=== PATIENT | male | born 1935 | race Caucasian/White ===

== ENCOUNTER 2017-03-23 18:12 | Emergency (ER) | payer MEDICARE ==
[2017-03-23] MEDS ORDERED: Acetaminophen 500 MG TAB ONE (18:28)
[2017-03-23] MEDS ORDERED: diphenhydrAMINE 50 MG/ML VIAL ONE (18:28)
[2017-03-23] MEDS ORDERED: Metoclopramide HCl 10 MG/2 ML VIAL ONE (18:28)
--- NOTE | 2017-03-23 18:57 | CT ---
CT OF BRAIN PERFORMED WITHOUT CONTRAST ENHANCEMENT: 03/23/17 HISTORY: Patient is status post fall with headache. COMPARISON: 04/06/16 study. Ventriculoperitoneal shunt tube is in place. The ventricular and cisternal system shows generalized atrophy and appears stable as compared to the prior exam. There is chronic white matter changes. The re is no signs of intracerebral hemorrhage or extra-axial fluid collections. The mastoid air cells a nd visualized sinuses are clear. IMPRESSION: No acute intracranial abnormalities. POS: [facility]
== END 2017-03-23 19:31 | disposition home or self-care (01) ==
LOC: ERS 18:12
DX: S09.90XA Unspecified injury of head, initial encounter (principal); I25.2 Old myocardial infarction; E78.5 Hyperlipidemia, unspecified; I10 Essential (primary) hypertension; Z79.82 Long term (current) use of aspirin; Z79.899 Other long term (current) drug therapy; W01.198A Fall on same level from slipping, tripping and stumbling with subsequent striking against other object, initial encounter; Y92.524 Gas station as the place of occurrence of the external cause
CPT/HCPCS: 70450; 96361; 96374; 96375; J1200; J2765

== ENCOUNTER 2017-05-07 13:08 | Outpatient (CLI) | payer MEDICARE ==
--- NOTE | 2017-05-07 14:34 | RAD ---
PA AND LATERAL CHEST TWO VIEWS: History: 82-year-old male with dyspnea. Comparison: 04-11-16 FINDINGS: Post underlying sternotomy. Prominent atherosclerotic ectatic changes of the aorta. Right CONFERENCE TRANSLATOR shunt tu be. Status post vertebroplasty changes in the region of the upper lumbar lower thoracic area. No conf luent pneumonia, overt edema or pleural effusion. IMPRESSION: Stable chronic lung changes. Marked atherosclerosis of the aorta with ectasia. POS: [facility]
== END 2017-05-07 13:09 | disposition home or self-care (01) ==
LOC: RAD 13:08
PROVIDERS: ATTEND Internal Medicine Pulmonary Disease
DX: R06.00 Dyspnea, unspecified (principal); I70.0 Atherosclerosis of aorta
CPT/HCPCS: 71020

== ENCOUNTER 2017-05-15 12:30 | Observation (INO) | payer MEDICARE ==
[2017-05-15 12:55] LABS: #Eosinphils 0.1 thou/uL (0.0-0.7); #Lymphocytes 1.6 thou/uL (1.20-3.40); #Monocytes 0.4 thou/uL (0.11-0.59); #Neutrophils 5.2 thou/uL (1.40-6.50); %Basophils 0.1 % (0.0-1.0); %Eosinophils 1.7 % (0.0-10.0); %Lymphocytes 21.9 % (21.0-51.0); %Monocytes 5.5 % (0.0-10.0); Hematocrit 45.8 % (42.0-52.0); Mean Platelet Volume 8.5 fL (7.4-10.4); Red Blood Cell (RBC) Count 4.68 mill/uL (4.70-6.10); White Blood Cell (WBC) Count 7.3 thou/uL (4.8-10.8)
[2017-05-15 13:22] LABS: ALT (SGPT) 20 U/L (8-55); AST (SGOT) 19 U/L (5-34); Alkaline Phosphatase 96 U/L (40-150); Anion Gap 13 mmol/L (10-20); BUN (Urea Nitrogen) 13 mg/dL (8.4-25.7); Bilirubin, Total 1.2 mg/dL (0.2-1.2); CK (CPK) 79 U/L (30-200); Calc. Creatinine Clearance 0 mL/min (70-130); Calcium 9.8 mg/dL (7.8-10.44); Carbon Dioxide 24 mmol/L (23-31); Chloride 105 mmol/L (98-107); Estimated GFR-MDRD 75; Globulin 2.9 g/dL (2.4-3.5); Lipase 15 U/L (8-78); Protein, Total 7.1 g/dL (5.8-8.1)
[2017-05-15 13:24] LABS: Troponin I 0.017 ng/mL (< 0.028)
--- NOTE | 2017-05-15 13:34 | RAD ---
SINGLE VIEW OF THE CHEST: Date: 05-15-17 Comparison: 04-16-16 History: Chest pain. FINDINGS: Single view of the chest shows a normal sized cardiomediastinal silhouette. Patient is status post st ernotomy. A catheter projecting over the right chest wall may represent a HOG KILLER shunt. There is no evide nce of consolidation, mass or pleural effusion. IMPRESSION: No evidence of acute cardiopulmonary disease. POS: [facility]
[2017-05-15 13:52] LABS: PTT 28.5 SEC (22.9-36.1); Prothrombin Time 13.7 SEC (12.0-14.7)
[2017-05-15] MEDS ORDERED: ISOVUE-370 76%-LOCM 1 ML ONE (13:54)
[2017-05-15 13:56] LABS: Lactic Acid - Sepsis 2.6 mmol/L (0.5-2.2)
[2017-05-15] MEDS ORDERED: Azithromycin 500 MG VIAL ONE (14:22)
--- NOTE | 2017-05-15 14:58 | CT ---
CTA OF THE CHEST WITH CONTRAST: Comparison: 04-10-15 History: Chest pain with shortness of breath. Technique: Multiple contiguous axial images were obtained in a CT of the chest with contrast performe d according to department protocol. 3D oblique MIP reformats and direct coronal reformats were perfor med. FINDINGS: The pulmonary arteries are well opacified without filling defects to suggest pulmonary emboli. The he art is mildly enlarged. Calcifications are seen in the coronary arteries and aorta. No hilar or media stinal lymphadenopathy are seen. No pneumothorax or pleural effusion are seen. No focal infiltrates are seen in the lungs. No suspicio us pulmonary nodules are seen. Degenerative changes are seen in the spine. A gallstone is seen in the gallbladder. The other visuali zed subdiaphragmatic structures are unremarkable. There is a catheter projecting over the anterior as pect of the chest which eventually courses into the left upper quadrant of the abdomen and likely rep resents a CASSANDRA CONSULTANT shunt. There is subcutaneous nodules in the chest wall which may represent sebaceous cys ts. The chest wall soft tissues are otherwise unremarkable. IMPRESSION: 1. No evidence of pulmonary thromboembolism. 2. Cholelithiasis. POS: [facility]
--- NOTE | 2017-05-15 15:57 | HP ---
DATE OF ADMISSION: 05/15/2017 PRIMARY CARE PHYSICIAN: Dr. Black Lucas. PRIMARY MOHEL: Dr. True Kothari. TIME OF SERVICE: 1400. CHIEF COMPLAINT: Chest pain. HISTORY OF PRESENT ILLNESS: Mr. Xie is a pleasant 82-year-old gentleman with history of hypertension , hyperlipidemia, coronary artery disease, and bifascicular block, who presents to the emergency depa rtment for complaints of chest discomfort. The patient was in normal state of health this morning, and at 0208 was abruptly awakened by a band o r rope like tightness around his chest. He rated 7/10 discomfort. He denies any shortness of breath , sweats or diaphoresis with this and said it went away with 3 tramadol. There does not seem to be r elated to position or activity. He subsequently was not feeling better, so he came to the emergency department for evaluation. There he was found to be hypoxic when EMS was activated. On arrival, he is 94% on oxygen. He has be en in the low 90s on 2-3 liters here. He has been tachycardic with heart rate in the low 100s, blood pressure on arrival was in the 80 systolic and after a little bit of fluid, it comes up into the hig h 90s, low 100s. He denies any chest discomfort at present. No nausea or vomiting. No diarrhea or constipation. He has had no sick contacts or any cough or sputum production. Denies any sharp pains in the chest. De nies any PND or orthopnea. Historically, the patient denies having any heart failure; however, review of his echo in 08/2014, sh ows an EF 50% to 55% with mild systolic and evidence of diastolic dysfunction, moderate tricuspid and mild mitral regurgitation and some inferior wall hypokinesis. Other workup in the ER including CT angio was negative pulmonary embolus or fluid or pneumonia. He had negative biomarkers x1 set. Labs were otherwise unremarkable. We were called for further wor kup. I spoke with Dr. Kothari. He had a negative stress test 1-2 years ago. PAST MEDICAL HISTORY: 1. Hypertension. 2. Hyperlipidemia. 3. Coronary artery disease, status post NV in the past. 4. History of hydrocephalus, status post POLE INCISOR OPERATOR shunt placement. 5. Hypertension, essential. 6. History of prostate cancer. 7. History of chronic low back pain. PAST SURGICAL HISTORY: 1. POLE INCISOR OPERATOR shunt placement for hydrocephalus in 2007, still functioning. 2. There was appendectomy remotely. 3. Coronary artery bypass x3. 4. There was hernia repair. 5. Bilateral total knee replacements. 6. Radical prostatectomy. 7. Transurethral resection of his prostate. HOME MEDICATIONS: 1. Aspirin 81 mg daily. 2. Colace 100 mg p.o. b.i.d. 3. Atorvastatin 80 mg p.o. at bedtime. 4. Isosorbide mononitrate 30 mg p.o. b.i.d. 5. Metoprolol tartrate 12.5 mg p.o. at bedtime. 6. Tramadol as needed. 7. Ranexa 1000 mg p.o. b.i.d. 8. Protonix 40 mg daily. 9. Ditropan-XL 10 mg daily. 10. Nitroglycerin 0.4 mg sublingual every 5 minutes p.r.n. 11. Hyophen 1 tablet p.o. q.i.d. per records. ALLERGIES: NKDA. FAMILY HISTORY: Negative for clotting or bleeding disorders. No immune dysfunction. SOCIAL HISTORY: He is . He has had no recent travel. He is negative for alcohol, tobacco or drug use. REVIEW OF SYSTEMS: A 10-point review of systems was performed, negative for all other systems except stated as per HPI. PHYSICAL EXAMINATION: VITAL SIGNS: Temperature 97.8, pulse on arrival 108. Blood pressure was 96/48 down to the 80s/40s. He had gotten fluids by the time I saw him back in the low 100s/50s. After coming back from CT kelly ogram was 113/60. Respiratory rate on arrival was 19 and is less at 94% on room air, but currently s atting 92% to 93% on 3 liters. GENERAL: He is awake. He is alert. He is oriented x3. He is a well-developed, well-nourished elde rly white male, who appears to be in no acute distress. He cannot hear very well at all. HEENT: Normocephalic, atraumatic. Pupils equal, round, reactive to light bilaterally, mucous membra rosa are moist. He has no visible lesions. No thrush. NECK: Supple. There is no lymphadenopathy, no JVD and no thyromegaly. He has normal carotid upstro kes. I do not appreciate bruits. LUNGS: Clear to auscultation anteriorly. Posteriorly, he has some faint bibasilar crackles that do clear with deep inspiration. There is no E to A changes. He has got symmetrical chest excursion wit h good air movement. There is no prolonged expiratory phase. CARDIOVASCULAR: He is tachycardic, but regular. He has a normal S1 and a decreased S2. I do not he ar an S3. I do not hear an S4. He does have a 3/6 holosystolic murmur best heard at the left lower sternal border. He has a faint 2/6 systolic ejection murmur best heard at the right upper sternal shannan rder. These do not radiate anywhere. ABDOMEN: Soft, slightly obese, nontender, nondistended. He has good bowel sounds. There is no rebo und, rigidity or guarding. EXTREMITIES: Show no cyanosis or clubbing. He has got trace edema of the right lower extremity belo w the knee that does not fit. He has no edema to his left leg. His knees have well-healed incisions from previous knee replacements. SKIN: Otherwise warm, moist, and well perfused without any other rashes or lesions. MUSCULOSKELETAL: Normal to inspection. Large joints appear uninflamed without palpable joint effusi ons. NEUROLOGIC: Cranial nerves II-XII to be grossly intact. He has normal speech pattern. He has 5/5 s trength. There are no focal neurologic deficits. LABORATORY DATA: CMP is normal. Sodium 138, potassium is 3.9, creatinine 0.96, calculating MDRD GFR of 75. Glucose 136. He has normal liver functions. CBC showed a white count of 7.3 with a normal differential, hemoglobin is 14.6, hematocrit of 45.8, and platelet count is 181,000. Troponin I was for now 0.017 and MB is normal at 1.7. Lactic acid was 2.6. When I initially saw him with labs, the re was no BNP, but it was added by the ER at my request. BNP came back at 169.2. INR was 1.0. EKG showed a right bundle branch block, left anterior hemiblock. He has got sinus tachycardia. There ar e nonspecific ST-T changes. Chest x-ray showed no acute cardiopulmonary disease. CT angiogram showed no evidence of pulmonary em bolus. He has no pulmonary edema or focal consolidation. He has got some subcutaneous nodules in a few locations. He also has a catheter over the anterior aspect of the chest which goes in the upper quadrant likely his POLE INCISOR OPERATOR shunt appears to be intact. He has had some cholelithiasis. ASSESSMENT AND PLAN: 1. Chest discomfort. 2. Tachycardia. 3. Hypotension. 4. Hypoxemic respiratory failure. 5. History of coronary artery disease. 6. Hyperlipidemia. 7. Essential hypertension. 8. Elevated lactic acid. The patient does meet sepsis criteria; however, I do not suspect this is infectious in nature. I am more concerned that he might have an acute exacerbation of systolic or diastolic congestive heart madhuri lure. We will get serial cardiac biomarkers. We will continue metoprolol tartrate 12.5 b.i.d., nathan nopril 5 mg a day, and cut his isosorbide mononitrate back to 30 mg daily. We will continue giving o xygen 2 liters nasal cannula continuously, and watches intake and output. I initially thought he cornel ht need fluids; however, I think given his history of elevated RVSP, sure there could be right-sided heart failure though I see no evidence of systemic congestion. We will be placed in observation on t telemetry unit. Follow up on the results. Repeat lactic acid has been ordered. I spoke with Dr. Kothari and asked for his opinion. Given that he had a normal stress test 1-2 yea rs ago, he said likely will be just medical management. We will continue him on a beta kermit, TIMOTEO inhibitor, and monitor.
[2017-05-15 16:08] LABS: Troponin I 0.013 ng/mL (< 0.028)
[2017-05-15] MEDS ORDERED: Ondansetron ODT 4 MG TAB PO PRN (16:19)
[2017-05-15] MEDS ORDERED: Acetaminophen 325 MG TAB PO PRN (16:19)
[2017-05-15] MEDS ORDERED: HYDROcodone/Acetaminophen 5/325 mg Tablet PO PRN (16:19)
[2017-05-15] MEDS ORDERED: HYDROcodone/Acetaminophen 10/325 mg Tablet PO PRN (16:19)
[2017-05-15 16:51] VITALS: BMI 28.2
[2017-05-15] MEDS: Sodium Chloride 0.9% 1,000 ML IV SCH (17:25)
[2017-05-15] MEDS: Lisinopril 5 MG TAB PO SCH (19:43)
[2017-05-15] MEDS: Metoprolol Tartrate 25 MG TAB PO SCH (19:43)
[2017-05-15] MEDS: Famotidine/PF 20 mg/2ml Vial SLOW IVP SCH (20:37)
[2017-05-16 05:10] LABS: Anion Gap 7 mmol/L (10-20); BUN (Urea Nitrogen) 13 mg/dL (8.4-25.7); Calc. Creatinine Clearance 94 mL/min (70-130); Calcium 8.8 mg/dL (7.8-10.44); Carbon Dioxide 29 mmol/L (23-31); Chloride 107 mmol/L (98-107); Estimated GFR-MDRD Greater than 90; Magnesium 2.2 mg/dL (1.6-2.6)
[2017-05-16 05:19] LABS: Band 3 % (5-11); Hematocrit 38.6 % (42.0-52.0); Mean Platelet Volume 8.2 fL (7.4-10.4); Neutrophil 60 % (42-75); Red Blood Cell (RBC) Count 3.85 mill/uL (4.70-6.10)
[2017-05-16] MEDS: Sodium Chloride 0.9% 1,000 ML IV SCH (07:00)
[2017-05-16 08:49] LABS: Troponin I 0.014 ng/mL (< 0.028)
[2017-05-16] MEDS: Famotidine/PF 20 mg/2ml Vial SLOW IVP SCH (09:36)
[2017-05-16] MEDS: Lisinopril 5 MG TAB PO SCH (09:36)
[2017-05-16] MEDS: Metoprolol Tartrate 25 MG TAB PO SCH (09:36)
[2017-05-16 12:13] VITALS: BP 119/73; TEMP 98.2
--- NOTE | 2017-05-16 15:52 | DIS ---
DATE OF ADMISSION: 05/15/2017 DATE OF DISCHARGE: 05/16/2017 DISCHARGE DIAGNOSES: 1. Acute on chronic valvular and systolic congestive heart failure. 2. Acute hypoxemic respiratory failure. 3. Mild to moderate tricuspid regurgitation and moderate to severe mitral regurgitation. 4. Essential hypertension. 5. History of pulmonary emboli. 6. History of atherosclerotic heart disease without active angina. 7. Chest pain. CONSULTATIONS: Dr. Kothari with Cardiology. PROCEDURES: A 2D echocardiogram 05/16/2017 that showed LVEF 50-55%, moderately dilated left atrium, moderate to severe mitral regurgitation, mild to moderate tricuspid regurgitation. HISTORY AND PHYSICAL: Mr. Xie is a pleasant 82-year-old gentleman whom I admitted to the hospital on 05/15/2017 for evaluation of chest pain and shortness of breath. Patient woke up at 2:00 in the morning with acute onset of a band-like pressure on his chest, took some tramadol and eased up; however, the shortness of breath persisted through the day, so he presented to the emergency department for evaluation. On arrival, he was notably borderline hypoxic on oxygen. Blood pressure was low in the 80s-90s systolic, he was complaining of chest pain. Workup there other than the low blood pressure was negative. He was given a small amount of fluids in the emergency department with return of his blood pressure, we are called for admission. HOSPITAL COURSE: The patient was seen and examined by me in the Emergency Department, placed in observation. Serial cardiac biomarkers were obtained that were negative overnight. A 2D echocardiogram was ordered and performed today. He was seen by Dr. Kothari yesterday, who agreed with the increase in beta kermit and continuance of his oral isosorbide mononitrate. The patient was watched overnight, and had good urine output. Today, he was weaned off oxygen and was 94-95% on room air. No further chest pain, biomarkers were negative, an echo was reviewed by Dr. Kothari. He was cleared for discharge with outpatient followup. Dr. Kothari did recommend to continue the current dosing of his medications. PHYSICAL EXAMINATION: The patient was seen and examined on the day of discharge. Discharge plan and disposition were discussed with the patient and his face to face at the bedside. DISCHARGE MEDICATIONS: 1. Aspirin 81 mg daily. 2. Isosorbide mononitrate 30 mg p.o. daily, new prescription sent. This was decreased from 30 mg b.i.d. 3. Zestril 5 mg p.o. b.i.d., prescription for 60 tablets and 2 refills sent. 4. Methenamine/methyl blue/salicylate 1 tablet p.o. as needed as prior to admission. 5. Metoprolol tartrate 12.5 mg p.o. b.i.d., increased to 12.5 mg p.o. at bedtime, prescription sent. 6. Nitrostat 0.4 mg sublingual every 5 minutes p.r.n. chest pain. 7. Oxybutynin as taken prior to admit. 8. Pantoprazole 40 mg daily. 9. Ranexa 1000 mg p.o. b.i.d. 10. Sennosides/docusate 1 tablet as needed for constipation. 11. Tramadol 50 mg p.o. as needed for pain. FOLLOWUP APPOINTMENTS: 1. Primary care physician in [address] Kothari in 2-3 weeks. DISCHARGE DIET: Heart healthy and low sodium. DISCHARGE ACTIVITY: Per cardiopulmonary limits. DISPOSITION: The patient is being discharged to home via private vehicle with his . DISCHARGE CONDITION: Good. MTDD
--- NOTE | 2017-05-25 14:35 | EKG ---
Test Reason : Blood Pressure : / mmHG Vent. Rate : 102 BPM Atrial Rate : 102 BPM P-R Int : 150 ms QRS Dur : 154 ms QT Int : 390 ms P-R-T Axes : 002 -68 015 degrees QTc Int : 508 ms Sinus tachycardia Possible Left atrial enlargement Right bundle branch block Left anterior fascicular block Bifascicular block Left ventricular hypertrophy Abnormal ECG No changes c/w 16-APR-2016 Confirmed by JOEY SANTOS DO ([id number]), film editor supervisor CHITO BULLOCK ([id number]) on 05/25/2017 2:34:41 PM Referred By: Confirmed By:JOEY SANTOS DO
== END 2017-05-16 12:58 | disposition home or self-care (01) ==
LOC: ERS 12:30 → 2SW 16:14
PROVIDERS: ADMIT Internal Medicine Infectious Disease; ATTEND Internal Medicine Infectious Disease
DX: I11.0 Hypertensive heart disease with heart failure (principal); I50.43 Acute on chronic combined systolic (congestive) and diastolic (congestive) heart failure; I08.1 Rheumatic disorders of both mitral and tricuspid valves; I25.10 Atherosclerotic heart disease of native coronary artery without angina pectoris; E78.5 Hyperlipidemia, unspecified; I45.2 Bifascicular block; I25.2 Old myocardial infarction; M54.5 Low back pain; G89.29 Other chronic pain; R07.89 Other chest pain; R00.0 Tachycardia, unspecified; J96.91 Respiratory failure, unspecified with hypoxia; Z79.82 Long term (current) use of aspirin; Z79.899 Other long term (current) drug therapy; Z98.2 Presence of cerebrospinal fluid drainage device; Z96.653 Presence of artificial knee joint, bilateral; Z95.1 Presence of aortocoronary bypass graft; Z90.49 Acquired absence of other specified parts of digestive tract; Z90.79 Acquired absence of other genital organ(s); Z98.890 Other specified postprocedural states; Z86.711 Personal history of pulmonary embolism; Z85.46 Personal history of malignant neoplasm of prostate; Z87.891 Personal history of nicotine dependence
CPT/HCPCS: 51701; 71010; 71275; 80048; 80053; 80061; 82550; 82553 ×4; 83605 ×2; 83690; 83735; 83880; 84484 ×4; 85007; 85025; 85027; 85610; 85730; 87040; 93005; 93306; 94760; 96361 ×3; 96365; 96374; 96375; 96376; 99291; G0378; 36415; J0456; J0696; S0028

== ENCOUNTER 2017-09-28 12:27 | Emergency (ER) | payer MEDICARE ==
[2017-09-28 13:31] LABS: #Eosinphils 0.2 thou/uL (0.0-0.7); #Lymphocytes 1.4 thou/uL (1.20-3.40); #Monocytes 0.6 thou/uL (0.11-0.59); #Neutrophils 6.9 thou/uL (1.40-6.50); %Basophils 0.4 % (0.0-1.0); %Eosinophils 2.5 % (0.0-10.0); %Lymphocytes 15.1 % (21.0-51.0); %Monocytes 6.9 % (0.0-10.0); %Neutrophils 75.1 % (42.0-75.0); Mean Corpuscular HGB CONC 33.1 g/dL (32.0-36.0); Mean Corpuscular Hemoglobin 32.2 pg (27.0-31.0); Mean Corpuscular Volume 97.1 fl (80.0-94.0); Platelet Count 167 thou/uL (130-400); RBC Distribution Width 12.8 % (11.5-14.5); Red Blood Cell (RBC) Count 4.36 mill/uL (4.70-6.10); White Blood Cell (WBC) Count 9.1 thou/uL (4.8-10.8)
[2017-09-28 13:53] LABS: ALT (SGPT) 12 U/L (8-55); AST (SGOT) 17 U/L (5-34); Albumin 4.5 g/dL (3.4-4.8); Alkaline Phosphatase 100 U/L (40-150); Anion Gap 12 mmol/L (10-20); BUN (Urea Nitrogen) 19 mg/dL (8.4-25.7); Bilirubin, Total 1.4 mg/dL (0.2-1.2); CK (CPK) 100 U/L (30-200); Calc. Creatinine Clearance 0 mL/min (70-130); Calcium 9.9 mg/dL (7.8-10.44); Carbon Dioxide 29 mmol/L (23-31); Chloride 104 mmol/L (98-107); Estimated GFR-MDRD 84; Glucose 131 mg/dL (83-110); Lipase 7 U/L (8-78); Protein, Total 7.5 g/dL (5.8-8.1); Sodium 141 mmol/L (136-145)
[2017-09-28 13:55] LABS: CKMB 1.8 ng/mL (0-6.6); Troponin I 0.017 ng/mL (< 0.028)
--- NOTE | 2017-09-28 14:26 | RAD ---
PORTABLE CHEST: DATE: 09/28/17. PROVIDED CLINICAL HISTORY: Chest pain. FINDINGS: Comparison 05/15/17. Cardiac and mediastinal silhouette is unchanged in appearance. Presumed REED MAN vamshi nt catheter again overlies the chest. Median sternotomy changes are again seen. No focal consolidat ion, pleural fluid, or pneumothorax apparent. IMPRESSION: No evidence for an acute cardiopulmonary process. POS: [facility]
[2017-09-28] MEDS ORDERED: ISOVUE-370 76%-LOCM 1 ML ONE (15:21)
--- NOTE | 2017-09-28 16:34 | CT ---
CT PULMONARY ANGIOGRAM WITH IV CONTRAST AND 3D MIP RECONSTRUCTIONS 09/28/17 PROVIDED CLINICAL HISTORY: Shortness of breath, chest pain. FINDINGS: Comparison is made with the study dated 05/15/17. There is no evidence for central or segmental pulmonary embolus. Cardiomegaly is redemonstrated as ar e vascular calcifications. There is insufficient contrast material present within the systemic arteri al circulation for comment regarding dissection. The lungs are free of suspicious opacity. The airway appears patent and of normal caliber. There is no evidence for thoracic lymph node enlargement. The visualized portions of the upper abdomen demonstrate no acute findings. A gallstone is seen. The osse ous structures demonstrate no concerning osteoblastic or osteolytic lesions. IMPRESSION: No evidence for central or segmental pulmonary embolus. POS: [facility]
== END 2017-09-28 15:47 | disposition home or self-care (01) ==
LOC: ERS 12:27
DX: J20.9 Acute bronchitis, unspecified (principal); R07.89 Other chest pain; E78.5 Hyperlipidemia, unspecified; I10 Essential (primary) hypertension; I25.2 Old myocardial infarction
CPT/HCPCS: 71045; 71275; 80053; 82550; 82553; 83605; 83690; 84484; 85025; 87040; 87804; 93005; 96360

== ENCOUNTER 2017-12-22 10:06 | Observation (INO) | payer MEDICARE ==
[2017-12-22 10:39] LABS: #Basophils 0.1 thou/uL (0.0-0.2); #Eosinphils 0.1 thou/uL (0.0-0.7); #Lymphocytes 1.4 thou/uL (1.20-3.40); #Monocytes 0.5 thou/uL (0.11-0.59); #Neutrophils 3.8 thou/uL (1.40-6.50); %Basophils 1.1 % (0.0-1.0); %Eosinophils 2.4 % (0.0-10.0); %Lymphocytes 22.9 % (21.0-51.0); %Monocytes 8.5 % (0.0-10.0); %Neutrophils 65.1 % (42.0-75.0); Hemoglobin 13.1 g/dL (14.0-18.0); Mean Corpuscular HGB CONC 34.7 g/dL (32.0-36.0); Mean Corpuscular Hemoglobin 33.4 pg (27.0-31.0); Mean Corpuscular Volume 96.2 fL (78.0-98.0); Mean Platelet Volume 8.1 fL (7.4-10.4); Platelet Count 132 thou/uL (130-400); RBC Distribution Width 12.9 % (11.5-14.5); Red Blood Cell (RBC) Count 3.94 mill/uL (4.70-6.10); White Blood Cell (WBC) Count 5.9 thou/uL (4.8-10.8)
[2017-12-22 10:56] LABS: ALT (SGPT) 13 U/L (8-55); AST (SGOT) 17 U/L (5-34); Albumin 4.2 g/dL (3.4-4.8); Alkaline Phosphatase 78 U/L (40-150); Anion Gap 10 mmol/L (10-20); BUN (Urea Nitrogen) 16 mg/dL (8.4-25.7); Bilirubin, Total 1.1 mg/dL (0.2-1.2); Calc. Creatinine Clearance 0 mL/min (70-130); Calcium 9.4 mg/dL (7.8-10.44); Carbon Dioxide 28 mmol/L (23-31); Chloride 107 mmol/L (98-107); Estimated GFR-MDRD Greater than 90; Globulin 2.3 g/dL (2.4-3.5); Glucose 101 mg/dL (83-110); Potassium 4.1 mmol/L (3.5-5.1); Protein, Total 6.5 g/dL (5.8-8.1); Sodium 141 mmol/L (136-145)
--- NOTE | 2017-12-22 10:58 | CT ---
CTA OF THE HEAD AND NECK UTILIZING IV CONTRAST AND 3D REFORMATTED IMAGING: INDICATION: Stroke activation for left-sided facial droop and weakness that began at 0700 hours. COMPARISON: CT of the brain without contrast dated 12/22/17 at 10:15 a.m. FINDINGS: No hemodynamically significant stenosis, occlusion, or aneurysmal formation is evident. There is joleen e mild narrowing involving the origin of the left vertebral artery. Mild scattered vascular calcific ation involving the thoracic aorta and great vessels of the neck. There is a right ventriculostomy c atheter in place. There is mild chronic small-vessel white matter ischemic change. No area of abnor mal enhancement is seen within the brain. Visualized aerodigestive tract appears within normal limits. Lung apices demonstrate nonspecific mil d perihilar ground-glass opacities. No pathologically enlarged lymph nodes are evident. The parotid, submandibular, and thyroid glands appear within normal limits. There is moderate to severe multilevel spondylosis of the cervical spine. No acute fracture is evide nt. IMPRESSION: 1. No hemodynamically significant stenosis, occlusion, or aneurysmal formation demonstrated. [facility] were called to Dr. Springer at 10:43 a.m. on 12/22/17. 2. Mild narrowing involving the origin of the left vertebral artery. 3. Nonspecific mild perihilar ground-glass opacities within the lungs may reflect areas of subsegmen shawnee volume loss; however, an entity such as pulmonary edema from congestive heart failure or atypical infectious process cannot be entirely excluded. Recommend correlation with chest radiograph. POS: [facility]
[2017-12-22 11:01] LABS: CKMB 1.6 ng/mL (0-6.6); Troponin I Less than 0.010 ng/mL (< 0.028)
--- NOTE | 2017-12-22 12:31 | RAD ---
FRONTAL VIEW CHEST: INDICATION: Altered mental status. COMPARISON: 09/28/17. 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 The left lung base is partially obscured by the cardiac silhouette. There is prominence of cardi ac silhouette and pulmonary vasculature. Catheter tubing traversing the right neck and right chest i s seen, partially visualized. Postsurgical changes of the mediastinum again noted. No additional si gnificant interval change. IMPRESSION: Prominent cardiac silhouette. Mild central vascular prominence is also suggested. This may relate t o a component of decompensated congestive heart failure. Correlate clinically. POS: [facility]
[2017-12-22 13:30] LABS: Bilirubin Negative (Negative); Blood, Urine Negative (Negative); Clarity CLEAR (Clear); Glucose, Urine (Dipstick) Negative (Negative); Leukocyte Negative (Negative); Nitrite Negative (Negative); Protein, Urine (Dipstick) Negative (Neg-Trace); Specific Gravity, Urine 1.026 (1.002-1.036)
--- NOTE | 2017-12-22 15:51 | HP ---
PRIMARY CARE PHYSICIAN: Dr. Lance Cleaning. REASON FOR ADMISSION: Weakness. HISTORY OF PRESENT ILLNESS: An 82-year-old male who lives at home with his . His is also p resent. The patient is able to provide some history, but he is not good historian. It takes long to think for him to give answer. His has underlying dementia and she is also not a good historian . As per emergency room information, paramedics were called because patient was having weakness. Th e patient was seen normal this morning at 7. The patient was having both lower extremities weakness as well as right arm weakness. In the emergency room, the patient had stroke alert and CT angiograph y and CT brain was done which did not show any clot and there was no acute process. His chest x-ray was also unremarkable. Routine blood test was also unremarkable. The patient did not have any fever , chills, constipation, diarrhea, melena, hematochezia, abdominal pain. The patient reported little bit of headache last night, but that was improved this morning. He did not have any blurred vision. He did not have any fall. The patient is ambulating with a walker normally. 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 I spoke with the patient's granddacasey r, Yamila Xie and history obtained from her as well and she reported that her grandmother has demen tia and she cannot provide any good history. This patient falls frequently at home and family member requested to send him to an assisted living facility if possible after this admission. REVIEW OF SYSTEMS: The following complete review of systems was negative, unless otherwise mentioned in the HPI or below: Constitutional: Weight loss or gain, ability to conduct usual activities. Skin: Rash, itching. Eyes: Double vision, pain. ENT/Mouth: Nose bleeding, neck stiffness, pain, tenderness. Cardiovascular: Palpitations, dyspnea on exertion, orthopnea. Respiratory: Shortness of breath, wheezing, cough, hemoptysis, fever or night sweats. Gastrointestinal: Poor appetite, abdominal pain, heartburn, nausea, vomiting, constipation, or diarr hea. Genitourinary: Urgency, frequency, dysuria, nocturia. Musculoskeletal: Pain, swelling. Neurologic/Psychiatric: Anxiety, depression. Allergy/Immunologic: Skin rash, bleeding tendency. Please see my HPI for pertinent positive and negative. All other review of systems reviewed and nega tive except as mentioned in the HPI. Review of system mentioned above is not reliable given patient' s level of alertness and possible dementia related with the age. PAST MEDICAL HISTORY: Based on previous record, patient has a history of [place], coronary artery disease , history of hydrocephalus required SHIPWRIGHT HELPER shunt, hypertension, history of prostate cancer, chronic low b ack pain, dyslipidemia. PAST SURGICAL HISTORY: SHIPWRIGHT HELPER shunt placement for hydrocephalus in 2007, appendicectomy, CABG x3, hernia repair, bilateral knee replacement, prostatectomy, TURP. PAST PSYCHIATRIC HISTORY: Reviewed and negative. SOCIAL HISTORY: Patient is a former smoker. He quit smoking more than 10 years ago. He denies any alcohol abuse. He denies any other illicit drug abuse. He lives at home with his . FAMILY HISTORY: No strong family history of premature coronary artery disease, stroke or cancer. ALLERGIES: No known drug allergy. CURRENT HOME MEDICATIONS: Patient's family member did not bring medication from home and that is why we are not able to verify home medication, but patient was recently in our hospital and he was on fo llowing medications at that time. Aspirin 81 mg p.o. daily, Imdur 30 mg p.o. daily, lisinopril 5 mg p.o. b.i.d., Iophen one tablet q.i.d., Lopressor 12.5 mg p.o. b.i.d., Ditropan ER 10 mg p.o. daily, P rotonix 40 mg p.o. daily, Ranexa 1000 mg p.o. b.i.d., nitroglycerin p.r.n., Dulcolax one tablet p.r.n ., tramadol 50 mg q.i.d. p.r.n. EMERGENCY ROOM COURSE: This patient was out of window period for any kind of intervention and that i s why no intervention was done other than aspirin given based on risk and benefit. PHYSICAL EXAMINATION: VITAL SIGNS: On arrival, blood pressure 139/89, temperature 98.2, pulse 80, respiratory rate 24, sat uration 98% on room air, weight 86.1 kilograms. GENERAL: Patient is currently alert, awake. Follows simple command. Takes long time to respond. H e also has some hard of hearing. HEAD: Normocephalic, atraumatic. EYES: Pupils round, reactive to light. Extraocular muscle intact. ENT: Oropharynx within normal limits. Moist mucous membrane, no oral lesion, no pharyngeal erythema , no exudate. NECK: Supple, no JVD, no thyromegaly, no carotid bruit, no jugular venous distention. LUNGS: Clear to auscultation without any rhonchi or rales. CARDIAC: S1, S2 regular. Systolic murmur present parasternal as well as at apex. No gallop, no rub . ABDOMEN: Soft, bowel sounds present, nontender, nondistended. No organomegaly, no mass, no suprapub ic tenderness. BACK: Examination unremarkable, no CVA tenderness. EXTREMITIES: Upper extremity passive movements of all joints are normal. Patient does have right ar m weakness which is chronically weak from previous injury. Lower extremity; patient is able to move all four limbs. He does not have any edema. Good distal pulsation. SKIN: No rash. HEMATOLOGICAL SYSTEM: No lymphadenopathy. PSYCHIATRIC: Normal affect. NEUROLOGIC: Patient is able to move all four limbs on request, though he has right upper extremity w hich is chronic. Initially in the emergency room, NIH score was 7. He tended to keep himself on the left side. When I saw, at that time he was able to lift all 4 limbs, though right-sided weakness. Sensation intact. Reflexes symmetrical. Gait unable to assess. IMAGING DATA AND SIGNIFICANT LABORATORY DATA: EKG showing right bundle branch block pattern. CT bra in showing no acute intracranial process. CT angiography showing no large vessel clot and negative. Mild narrowing of the origin of left vertebral artery. Incidental finding of ground glass opacity i n the lungs. Chest x-ray showing pulmonary vascular prominence. CBC: WBC 5.9, hemoglobin 13.1, otilio telet 132. BMP: Sodium 141, potassium 4.1, chloride 107, carbon dioxide 28, BUN 16, creatinine 0.81 , calcium 9.4, glucose 101. LFT: AST 17, ALT 13, alkaline phosphatase 78, albumin 4.2. Cardiac enz ymes negative. Urinalysis normal. ASSESSMENT AND PLAN/IMPRESSION: 1. Weakness. I am pretty much sure that this patient has generalized weakness. He has both lower e xtremities weakness, but he is able to lift his both lower extremity without any problem. He does leach ve chronic right upper extremity weakness per patient's family member. At this point, CT brain is ne gative and [place] angiography is also negative. The patient will need neurologic consul tation and we will defer further plan to them. I doubt his SHIPWRIGHT HELPER shunt is also functioning properly. Mary hernadez has frequent falls. This patient may need assisted living facility upon discharge. We will do livan ro check while in hospital. We will monitor on telemetry floor. We will also consult PT, OT while in hospital. concession manager will be consulted. 2. Hypertension. Currently, patient's blood pressure is well controlled. Once we verify the patien t's home medication, then we will resume selected blood pressure medication if blood pressure permits . 3. Moderate mitral regurgitation as well as moderate tricuspid regurgitation based on previous echoc ardiography. Currently, patient is euvolemic, though x-ray reported finding suggestive of congestive heart failure, but clinically does not suspect any congestive heart failure given the patient is no edema. He is flat without any shortness of breath on room air and examination is normal. 4. Coronary artery disease. Continue aspirin 81 mg p.o. daily along with Lopressor 12.5 mg twice da nathalia and Ranexa 1000 mg p.o. b.i.d. 5. Gastroesophageal reflux disease. Continue Protonix 40 mg p.o. daily. 6. History of hydrocephalus required SHIPWRIGHT HELPER shunt in the past. Currently, this problem is stable. 7. Physical deconditioning. This patient is falling frequently at home. He may need PT/ OT and pos sible rehab placement versus assisted living placement. We will screen for rehab as well. 8. Deep venous thrombosis prophylaxis, Sequential compression device boots only. No Lovenox because we are expecting discharge soon. 9. GI prophylaxis, Protonix 40 mg p.o. daily. CODE STATUS: I spoke with the patient and he will make his decision by himself and he expressed his wish to continue as a FULL CODE status. Disposition plan based on clinical course. He may need placement to rehab versus assisted living fac ility. Plan of care discussed with the patient and family member at bedside in the emergency room as well as on phone.
--- NOTE | 2017-12-22 16:24 | CT ---
CT OF THE DI WITHOUT CONTRAST: INDICATION: Stroke activation for left-sided facial droop and left-sided weakness that began at 0700 hours. COMPARISON: Prior exam dated 03/23/17. FINDINGS: The right frontal ventriculostomy catheter is unchanged in position to the comparison. There is mild chronic small-vessel white matter ischemic change that is similar-appearing. Subcortical hypodensit y underlying the anterior aspect of the right insular ribbon is stable. Septum pellucidum and third ventricle are midline. Mastoid air cells are clear. Visualized paranasal sinuses are clear. The sk ull is intact. IMPRESSION: No acute intracranial abnormality. Findings called to Dr. Springer at 10:20 a.m. on 12/22/17. CODE CR POS: VANESSA
[2017-12-22 16:37] LABS: Troponin I 0.019 ng/mL (< 0.028)
[2017-12-22] MEDS ORDERED: Ondansetron ODT 4 MG TAB PO PRN (17:59)
[2017-12-22] MEDS ORDERED: Acetaminophen 325 MG TAB PO PRN (17:59)
[2017-12-22] MEDS ORDERED: Sodium Chloride 0.65% Nasal 44 ML BOT EA NARE PRN (17:59)
[2017-12-22] MEDS ORDERED: Milk Of Magnesia 30 ML UDCUP PO PRN (17:59)
[2017-12-22] MEDS ORDERED: Nitroglycerin 0.4 MG TAB (25 Tab Bottle) SL PRN (17:59)
[2017-12-22] MEDS ORDERED: hydrALAZINE 20 MG/ML VIAL SLOW IVP PRN (17:59)
[2017-12-22] MEDS ORDERED: Mag-Al 1200 mg/1200 mg/30 ML UDCUP PO PRN (17:59)
[2017-12-22] MEDS ORDERED: Senokot 8.6 MG TAB PO PRN (17:59)
[2017-12-22] MEDS ORDERED: Artificial Tears 18 DROP/0.9 ML EA EYE PRN (17:59)
[2017-12-22] MEDS ORDERED: Ondansetron HCl/PF 4 MG/2 ML Vial IVP PRN (17:59)
[2017-12-22] MEDS ORDERED: Chloraseptic Spray 180 ml Bottle PO PRN (17:59)
[2017-12-22] MEDS ORDERED: Loperamide HCl 2 MG CAP PO PRN (17:59)
[2017-12-22] MEDS ORDERED: Eucerin (Mineral Oil/Petrolatum,White) 30 gm Jar TOP PRN (17:59)
[2017-12-22 18:13] VITALS: BMI 25.4
[2017-12-22 19:01] LABS: Troponin I 0.013 ng/mL (< 0.028)
[2017-12-22] MEDS: Metoprolol Tartrate 25 MG TAB PO SCH (21:03)
[2017-12-22] MEDS ORDERED: Melatonin 3 MG TAB PO PRN (22:41)
[2017-12-23] MEDS: Metoprolol Tartrate 25 MG TAB PO SCH (07:41)
[2017-12-23] MEDS ORDERED: Cyanocobalamin (Vitamin B-12) 1,000 MCG TAB PO SCH (09:00)
[2017-12-23] MEDS ORDERED: Folic Acid 1 MG TAB PO SCH (09:00)
--- NOTE | 2017-12-23 10:51 | PDOC.PN ---
- Subjective Encounter Start Date: 12/23/17 Encounter Start Time: 07:10 -: old records requested/rev Patient seen and examined. No new complaints. No overnight events he is weak and slow, hard of hearing, requires assistance for ambulation - Objective Resuscitation Status: Resuscitation Status FULL:Full Resuscitation MAR Reviewed: Yes Vital Signs & Weight: Vital Signs (12 hours) Temp Pulse Resp BP Pulse Ox 12/23/17 08:00 98.4 F 84 14 12/23/17 07:51 98.4 F 84 14 156/107 H 93 L 12/23/17 03:36 97.2 F L 77 18 150/101 H 92 L 12/22/17 23:14 97.5 F L 66 20 120/83 93 L Weight Weight 187 lb 6.4 oz I&O: 12/22/17 12/23/17 12/24/17 06:59 06:59 06:59 Intake Total 250 Output Total 50 Balance 250 -50 Result Diagrams: 12/22/17 10:27 12/22/17 10:27 EKG Reviewed by me: Yes (nsr) Phys Exam - Physical Examination Constitutional: NAD HEENT: PERRLA, moist MMs, sclera anicteric Neck: no JVD, supple Respiratory: no wheezing, no rales, no rhonchi Cardiovascular: RRR, no significant murmur, no rub Gastrointestinal: soft, non-tender, no distention, positive bowel sounds Musculoskeletal: no edema, pulses present Neurological: non-focal, normal sensation, moves all 4 limbs right UE weak from previous injury Lymphatic: no nodes Psychiatric: normal affect Skin: no rash, normal turgor Dx/Plan (1) Weakness generalized Code(s): R53.1 - WEAKNESS Status: Acute (2) Bifascicular block Code(s): I45.2 - BIFASCICULAR BLOCK Status: Chronic (3) CAD (coronary artery disease) Code(s): I25.10 - ATHSCL HEART DISEASE OF [place] CORONARY ARTERY W/O ANG PCTRS Status: Chronic (4) Cholelithiasis Code(s): K80.20 - CALCULUS OF GALLBLADDER W/O CHOLECYSTITIS W/O OBSTRUCTION Status: Chronic Qualifiers: Cholelithiasis location: gallbladder Cholecystitis acuity: chronic Biliary obstruction: without biliary obstruction (5) Chronic low back pain Code(s): M54.5 - LOW BACK PAIN; G89.29 - OTHER CHRONIC PAIN Status: Chronic (6) Hyperlipidemia Code(s): E78.5 - HYPERLIPIDEMIA, UNSPECIFIED Status: Chronic (7) Hypertension Code(s): I10 - ESSENTIAL (PRIMARY) HYPERTENSION Status: Chronic (8) Macrocytic anemia Code(s): D53.9 - NUTRITIONAL ANEMIA, UNSPECIFIED Status: Chronic (9) 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 Review of Systems - Review of Systems Constitutional: weakness. negative: fever, chills, sweats, malaise, other ENT: negative: Ear Pain, Ear Discharge, Nose Pain, Nose Discharge, Nose Congestion, Mouth Pain, Mouth Swelling, Throat Pain, Throat Swelling, Other Respiratory: negative: Cough, Dry, Shortness of Breath, Hemoptysis, SOB with Excertion, Pleuritic Pain, Sputum, Wheezing Cardiovascular: negative: chest pain, palpitations, orthopnea, paroxysmal nocturnal dyspnea, edema, light headedness, other Gastrointestinal: negative: Nausea, Vomiting, Abdominal Pain, Diarrhea, Constipation, Melena, Hematochezia, Other Genitourinary: negative: Dysuria, Frequency, Incontinence, Hematuria, Retention , Other Musculoskeletal: negative: Neck Pain, Shoulder Pain, Arm Pain, Back Pain, Hand Pain, Leg Pain, Foot Pain, Other Skin: negative: Rash, Lesions, Yadiel, Bruising, Other - Medications/Allergies Allergies/Adverse Reactions: Allergies Allergy/AdvReac Type Severity Reaction Status Date / Time No Known Drug Allergies Allergy Verified 04/06/16 22:57 Medications: Current Medications Acetaminophen (Tylenol) 650 mg PO Q4H PRN PRN Reason: Headache/Fever or Pain Al Hydroxide/Mg Hydroxide (Maalox) 30 ml PO Q6H PRN PRN Reason: Heartburn or Indigestion Artificial Tears (Tears Naturale) 0 drop EA EYE PRN PRN PRN Reason: Dry Eyes Aspirin (Aspirin Chewable) 81 mg PO DAILY [place] Last Admin: 12/23/17 07:39 Dose: 81 mg Cyanocobalamin (Vitamin B-12) 1,000 mcg PO DAILY [facility] Last Admin: 12/23/17 07:39 Dose: 1,000 mcg Folic Acid (Folvite) 1 mg PO DAILY [facility] Last Admin: 12/23/17 07:40 Dose: 1 mg Hydralazine HCl (Apresoline) 10 mg SLOW IVP Q4H PRN PRN Reason: Systolic BP > 180 Loperamide HCl (Imodium) 2 mg PO PRN PRN PRN Reason: Diarrhea/Loose Stools Magnesium Hydroxide (Milk Of Magnesium) 30 ml PO DAILYPRN PRN PRN Reason: Constipation Melatonin (Melatonin) 3 mg PO HS PRN PRN Reason: Insomnia Last Admin: 12/22/17 22:49 Dose: 3 mg Metoprolol Tartrate (Lopressor) 12.5 mg PO BID [facility] Last Admin: 12/23/17 07:41 Dose: 12.5 mg Mineral Oil/White Petrolatum (Eucerin Cream) 0 gm TOP BIDPRN PRN PRN Reason: Dry Skin Nitroglycerin (Nitrostat) 0.4 mg SL Q5MIN PRN PRN Reason: Chest Pain Ondansetron HCl (Zofran Odt) 4 mg PO Q6H PRN PRN Reason: Nausea/Vomiting Ondansetron HCl (Zofran) 4 mg IVP Q6H PRN PRN Reason: Nausea/Vomiting Pantoprazole Sodium (Protonix) 40 mg PO DAILY [facility] Last Admin: 12/23/17 07:38 Dose: 40 mg Phenol (Chloraseptic [place] 180 Ml Bot) 0 ml PO PRN PRN PRN Reason: Sore Throat Ranolazine (Ranexa) 1,000 mg PO BID [facility] Last Admin: 12/23/17 07:38 Dose: 1,000 mg Senna (Senokot) 2 tab PO HSPRN PRN PRN Reason: Constipation Sodium Chloride ([place] Nasal [place] 0.65%) 0 ml EA NARE QIDPRN PRN PRN Reason: Nasal Congestion
--- NOTE | 2017-12-23 13:10 | DIS ---
PRIMARY CARE PHYSICIAN: Dr. Black Lucas DATE OF ADMISSION: 12/22/2017 DATE OF DISCHARGE: 12/23/2017 DISCHARGE DISPOSITION: Rehab. PRIMARY DISCHARGE DIAGNOSIS: Generalized weakness. SECONDARY DISCHARGE DIAGNOSES: History of hydrocephalus with CRITICAL CARE REGISTERED NURSE shunt, macrocytic anemia, hypertensi on, dyslipidemia, chronic low back pain, asymptomatic cholelithiasis, coronary artery disease, asympt omatic bifascicular block. PRIMARY PROCEDURE/OPERATION: None. RADIOLOGICAL INVESTIGATION: CT [place] with a CT angiography did not show any clot. There was mild narrowing at the base of left vertebral artery. CT brain was negative for any acute intracr anial process. There was mild chronic small vessel white matter changes. Chest x-ray did not show a ny acute cardiopulmonary process. SIGNIFICANT LABORATORY DATA: WBC 5.9, hemoglobin 13.1, platelet 132. Sodium 141, potassium 4.1, BUN 16, creatinine 0.81, calcium 9.4. LFT normal. Cardiac enzymes negative x3. Urinalysis normal. DISCHARGE MEDICATIONS: The patient will continue all his previous home medications; aspirin 81 mg p. o. daily, Imdur 30 mg p.o. daily, lisinopril 5 mg p.o. b.i.d., metoprolol 12.5 mg p.o. b.i.d., Proton ix 40 mg p.o. daily, Ranexa 1000 mg p.o. b.i.d., Senokot 1 tablet p.r.n., tramadol 50 mg q.i.d. p.r.n . NEW MEDICATION: Vitamin B12 1000 mcg p.o. daily, folic acid 1 mg p.o. daily. CONTRAINDICATIONS: None. CODE STATUS: FULL CODE. INPATIENT CONSULTANTS: Neurology was consulted while in the hospital. TEST RESULTS PENDING ON DISCHARGE: None. ALLERGIES: No known drug allergy. DISCHARGE PLAN: Post hospital, the patient will follow up with primary care physician in 1 or 2 week s. The patient will be discharged to rehab when arranged. HOSPITAL COURSE: An 82-year-old male who was having generalized weakness. He was not able to get up and he was found with more weakness on the right side and that is why the patient's called para medics. Paramedics suspected a stroke given his right upper extremity weakness. When he arrived to the emergency room, stroke alert was initiated. Unfortunately, because of patient's slow response an d as well as the patient's was not able to provide a good history and that is why we have to gary l family member and we realized that this patient has chronic weakness in the right upper extremity f rom previous injury. He was moving all [address] angiography, which did not show any acute blood clot in his brain. His CT brain was also negative for any acute process. The patient was out of window for any kind of intervention and he was also not a good candidate for t-PA considering the risks and benefit and that is why ER physician did not initiate any t-PA process. The patient was observed to stroke floor. All investigation is normal. He has physical deconditioni ng and generalized weakness. His neurological examination unremarkable. He remained neurologically stable overnight. His telemetry remained unremarkable. We did not pursue anymore investigation. We consulted Neurology, but by the time of dictation, Neurology consult is pending. This patient requires assistance with ambulation and family member requested to send him to skilled n ursing home versus assisted living facility versus rehab. At this point, we are consulting rehab scr een and if the patient qualifies for inpatient rehabilitation, then he will benefit from a short term rehabilitation and then he can transition to home or assisted living facility. The patient is seen and examined at bedside today. Please see my progress note from today for furthe r details. The patient is medically stable for discharge today.
[2017-12-23 15:25] VITALS: BP 131/84; TEMP 98.7
--- NOTE | 2017-12-28 11:46 | EKG ---
Test Reason : STROKE LIKE Blood Pressure : / mmHG Vent. Rate : 080 BPM Atrial Rate : 080 BPM P-R Int : 182 ms QRS Dur : 158 ms QT Int : 412 ms P-R-T Axes : -24 -62 025 degrees QTc Int : 475 ms Normal sinus rhythm Right bundle branch block Left anterior fascicular block Bifascicular block Moderate voltage criteria for LVH, may be normal variant Abnormal ECG Confirmed by SULEMA VERDUZCO DO ([id number]), assistant editor ELVIA BRICE ([id number]) on 12/28/2017 11:46:14 AM Referred By: Confirmed By:SULEMA VERDUZCO DO
== END 2017-12-23 18:53 ==
LOC: ERS 10:06 → 2SE 15:25
PROVIDERS: ADMIT Internal Medicine; ATTEND Internal Medicine
DX: R53.1 Weakness (principal); D53.9 Nutritional anemia, unspecified; I10 Essential (primary) hypertension; E78.5 Hyperlipidemia, unspecified; I25.10 Atherosclerotic heart disease of native coronary artery without angina pectoris; I45.2 Bifascicular block; K80.20 Calculus of gallbladder without cholecystitis without obstruction; Z79.82 Long term (current) use of aspirin; Z79.899 Other long term (current) drug therapy
CPT/HCPCS: 70450; 70496; 70498; 71045; 80053; 81003; 82553; 82962; 84484 ×2; 85025; 93005; 97116; 97139 ×2; 99285; G0378; G8978; G8979; G8987; G8988; 36415; 36416

== ENCOUNTER 2018-09-09 09:33 | Inpatient (IN) | payer MEDICARE ==
[2018-09-09] MEDS ORDERED: Nitroglycerin 0.4 MG TAB 1 EACH ONE (09:53)
[2018-09-09 10:04] LABS: #Eosinphils 0.1 thou/uL (0.0-0.7); #Lymphocytes 1.5 thou/uL (1.20-3.40); #Monocytes 0.4 thou/uL (0.11-0.59); %Basophils 0.2 % (0.0-1.0); %Eosinophils 2.3 % (0.0-10.0); %Lymphocytes 29.1 % (21.0-51.0); %Monocytes 7.8 % (0.0-10.0); %Neutrophils 60.6 % (42.0-75.0); Hemoglobin 13.1 g/dL (14.0-18.0); Mean Corpuscular HGB CONC 32.5 g/dL (32.0-36.0); Mean Corpuscular Hemoglobin 31.7 pg (27.0-31.0); Mean Corpuscular Volume 97.7 fL (78.0-98.0); Mean Platelet Volume 9.1 fL (7.4-10.4); Platelet Count 142 thou/uL (130-400); RBC Distribution Width 13.2 % (11.5-14.5); Red Blood Cell (RBC) Count 4.12 mill/uL (4.70-6.10)
[2018-09-09 10:29] LABS: ALT (SGPT) 10 U/L (8-55); AST (SGOT) 15 U/L (5-34); Albumin 4.4 g/dL (3.4-4.8); Alkaline Phosphatase 92 U/L (40-150); Anion Gap 11 mmol/L (10-20); BUN (Urea Nitrogen) 25 mg/dL (8.4-25.7); Bilirubin, Total 0.6 mg/dL (0.2-1.2); Calc. Creatinine Clearance 0 mL/min (70-130); Calcium 9.8 mg/dL (7.8-10.44); Carbon Dioxide 29 mmol/L (23-31); Chloride 106 mmol/L (98-107); Estimated GFR-MDRD 80; Glucose 72 mg/dL (83-110); Potassium 4.6 mmol/L (3.5-5.1); Protein, Total 6.4 g/dL (5.8-8.1); Sodium 141 mmol/L (136-145)
--- NOTE | 2018-09-09 10:32 | RAD ---
XR Chest 1 View Portable History: [Dyspnea] Comparison: Radiograph December 2017 Findings: Shunt catheter projects of the right hemithorax. The aorta is ectatic. Left basilar airspac e opacity. Lungs are hypoinflated. Likely interposition of bowel to the right hemidiaphragm and the liver. Impression: 1. Left basilar opacity concerning for infection. 2. 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 3. Likely interposition of bowel between the right hemidiaphragm and the liver. If there is concern f or pneumoperitoneum, radiographs of the abdomen would be recommended.
--- NOTE | 2018-09-09 11:44 | CT ---
Exam: CT angiogram chest with 3-D rendering: CT angiogram abdomen with 3-D rendering: HISTORY: Chest pain COMPARISON: 09/28/2017, CTA chest CT angiogram chest with 3-D rendering: There is some generalized ectasia of the descending aorta, aortic arch, and descending thoracic aorta measuring up to 4 cm at the level of the simi ascending aorta and 3.9 cm at the level of the aortic a rch and 4 cm at the level of the descending thoracic aorta. 3 vessel coronary artery calcific disease. Dilatation of the right and left main pulmonary arteries without evidence for central pulmonary arter y thrombosis. No pleural or pericardial effusion. No evidence for aortic dissection. CT angiogram abdomen with 3-D rendering: No evidence for aortic dissection. 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 Gallstone without evidence for acute cholecystitis. Left renal cyst. Small fat-containing anterior abdominal wall hernia above the level of the umbilicus. Right-sided PATIENT SUPPORT ASSISTANT shunt tube. Multilevel lumbar spine stenosis. IMPRESSION: No evidence for aortic dissection. 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 No CT evidence for central pulmonary thrombosis. Other findings as above.
[2018-09-09] MEDS ORDERED: Aspirin Chewable 81 MG TAB ONE (13:18)
[2018-09-09 14:05] LABS: Troponin I Less than 0.010 ng/mL (< 0.028)
[2018-09-09 14:26] LABS: Bilirubin Negative (Negative); Blood, Urine Negative (Negative); Glucose, Urine (Dipstick) Negative (Negative); Leukocyte Negative (Negative); Nitrite Negative (Negative); Protein, Urine (Dipstick) Negative (Neg-Trace); Urobilinogen 0.2 mg/dL (0.2-1.0)
[2018-09-09 14:29] LABS: Clarity Clear (Clear)
[2018-09-09] MEDS ORDERED: Nitroglycerin 0.4 MG TAB (25 Tab Bottle) PO PRN (15:42)
[2018-09-09] MEDS ORDERED: Acetaminophen 325 MG TAB PO PRN (15:42)
[2018-09-09] MEDS ORDERED: Cepastat Lozenges 1 LOZ PO PRN (15:42)
[2018-09-09 15:47] VITALS: BMI 22.9
--- NOTE | 2018-09-09 16:04 | HP ---
PRIMARY CARE PHYSICIAN: Dr. Black Lucas. CHIEF COMPLAINT: Shortness of breath and chest pain. HISTORY OF PRESENT ILLNESS: Mr. Xie is a pleasant 83-year-old gentleman, who has a history of hypertension and coronary artery disease. He woke up this morning, having trouble breathing and he also noted a dull pain in his chest. He says it was like something was pressing on him. When asked if he has had anything like this before, he initially said no, but then his daughter says that he has had this happened 3 times before and it was very similar. The pain did not have any radiation into the arms, neck, or jaw. He was given nitroglycerin and aspirin, which helped some. He also had history of some sweats at night. He has a known history of coronary artery disease, and he has had bypass surgery before. He was told that they were not able to bypass one of the blockages, and his daughter says that when he does get chest pain, he gets worried that it could be due to this artery that has yet to be bypassed. He also has been noted to have a cough which the daughter says has been productive of some grayish yellow sputum, but no pain in the chest when he coughs and again no nausea, no vomiting. The patient was seen in the emergency room and it was noted on chest x-ray that he had radiographic evidence of a possible infiltrate in the left lower lobe and he is being admitted for further evaluation and treatment. REVIEW OF SYSTEMS: All systems were reviewed and are negative, except for that mentioned in the history of present illness. PAST MEDICAL HISTORY: Significant for hypertension, hyperlipidemia, coronary artery disease, normal-pressure hydrocephalus, and prostate cancer. PAST SURGICAL HISTORY: He has had coronary artery bypass grafting, total knee replacement, a EMBEDDED CASE MANAGER shunt, and a prostatectomy. ALLERGIES: NO KNOWN DRUG ALLERGIES. SOCIAL HISTORY: He is and he lives at home with his . He is a nondrinker. He is a former smoker. He quit 45 years ago and used to smoke about 2 packs a day. FAMILY HISTORY: Significant for coronary artery disease in his father. CODE STATUS: Full code. CURRENT MEDICATIONS: Include, 1. Finasteride 5 mg daily. 2. Imdur extended release 60 mg daily. 3. Tramadol 50 mg q.6. 4. Lisinopril 5 mg once a day. 5. Metoprolol succinate extended release 25 mg daily. PHYSICAL EXAMINATION: GENERAL: He is alert and oriented. He appears to be in no acute distress. He is well developed and well nourished. VITAL SIGNS: Blood pressure is 131/88, heart rate is 79, respiratory rate of 22, and temperature is 98.0. HEENT: Pupils are equal, round, and reactive to light. Extraocular muscles are intact. Sclerae are anicteric. THROAT: There is no erythema, no exudates. NECK: No adenopathy. No bruits. LUNGS: Essentially clear to auscultation. I do not appreciate any wheezing, rales, or rhonchi. CARDIOVASCULAR: He has a normal S1, S2. No S3 or S4. He does have a grade 2/6 holosystolic murmur. It is radiating into the axilla and loudest at the lower left sternal border. ABDOMEN: Soft. It is nontender, nondistended. Positive for bowel sounds. No rebound or guarding. No organomegaly. EXTREMITIES: There is no clubbing or cyanosis. No edema. NEUROLOGICAL: The exam is grossly nonfocal. SKIN AND INTEGUMENT: There are no skin changes. No rashes. LABORATORY DATA: Chemistry; sodium is 141, potassium is 4.6, chloride is 106, CO2 is 29, BUN of 25, creatinine is 0.91, glucose is 72. Natriuretic peptide is 139. White blood cell count is 5, hemoglobin is 13.1, hematocrit is 40.3, and platelet count is 142. Urinalysis was negative. ASSESSMENT: This is an 83-year-old gentleman, who presents to the emergency room complaining of chest pain. He was concerned that this could be related to his heart as he has a history of coronary artery disease in the past; however, his EKG is unchanged and even though it is abnormal and his troponin was negative, and also concerning was possible infiltrate on the chest x-ray. It is possible he could have a pneumonia; however, arguing against this would be no fever and no elevated white blood cell count. However, in elderly, we do not always see an elevation in white count or mounting of a fever response. It is possible that he could have a pneumonia with some exacerbation of his ischemic heart disease. Therefore, we will likely treat him for both and bring him in as a full admission for pneumonia as well as possible angina or unstable angina. Start him on IV antibiotics, and this will be for a community-acquired pneumonia as he has not recently been in the hospital. We will get sputum as well as blood cultures and place him on supplemental oxygen. 1. Chest pain in the setting of coronary artery disease. We will continue his nitrates. Continue to trend his cardiac enzymes and consult his pilot plant operator for further recommendations. 2. Hypertension. We will go ahead and restart his usual home medications as well as have p.r.n. medication available and he will be placed on DVT and GI prophylaxis. Job ID: [id number]
[2018-09-09 16:26] LABS: Troponin I Less than 0.010 ng/mL (< 0.028)
[2018-09-09] MEDS ORDERED: ISOVUE-370 76%-LOCM 1 ML ONE (16:52)
--- NOTE | 2018-09-09 19:27 | CON ---
DATE OF CONSULTATION: HISTORY OF PRESENT ILLNESS: The patient is an 83-year-old gentleman, presents for evaluation of chest discomfort. The patient has a long history of coronary artery disease. The patient is status post coronary artery bypass graft surgery. He underwent a cardiac catheterization in May of 2012. He was found to have 1 occluded graft with a patent MAURICE and saphenous vein graft with 1 occluded obtuse marginal graft. The patient has been on medical therapy. He was admitted in 2014 with chest pain. The patient was placed on medical therapy. He was continued on medical therapy. He was seen again in April of 2015 with chest pain. He was felt to have chronic stable angina and continued on medical therapy. The patient has been free of chest discomfort until today, when he developed recurrent left-sided chest discomfort. This lasted for several hours. The patient eventually came to the emergency room for further evaluation. The patient denies of any present chest discomfort. PAST MEDICAL HISTORY: Significant for; 1. Coronary artery disease. 2. History of coronary artery bypass surgery. 3. Hypertension. 4. Dyslipidemia. 5. History of normal-pressure hydrocephalus. 6. History of prostate carcinoma. PAST SURGICAL HISTORY: He had a coronary artery bypass surgery, prostatectomy, and a SAMPLE COORDINATOR shunt. SOCIAL HISTORY: Former smoker. FAMILY HISTORY: Strong family history of coronary artery disease. MEDICATIONS: See nursing list. REVIEW OF SYSTEMS: Ten-point system otherwise unremarkable. PHYSICAL EXAMINATION: GENERAL: Elderly gentleman, in no acute distress. VITAL SIGNS: Blood pressure 148/94. NECK: Showed no jugular venous distention. LUNGS: Clear to auscultation. HEART: Regular rate and rhythm. Normal S1 and S2 with a 3/6 systolic murmur. ABDOMEN: Nondistended. EXTREMITIES: Showed no edema. VASCULAR: Radial pulses 2+. LABORATORY DATA: Sodium 141, potassium 4.6, chloride 106, bicarbonate 29, BUN 25, and creatinine 0.91. Troponin was 0.025. White blood count 5.0, hemoglobin 13.1, hematocrit 48.3, and his platelets were 142. His EKG revealed normal sinus rhythm with right bundle branch block and a left anterior fascicular block. IMPRESSION: 1. Unstable angina. 2. History of coronary artery bypass surgery x3 with 1 occluded graft. 3. Hypertension. 4. Dyslipidemia. 5. Mitral regurgitation. 6. History of ventriculoperitoneal shunt. 7. Dyslipidemia. PLAN: This gentleman presents with unstable angina. From a cardiac standpoint, he will be treated with full-dose Lovenox. The patient will be restarted on his Ranexa. Further recommendations will follow. Job ID: [id number]
[2018-09-09] MEDS ORDERED: Enoxaparin Sodium 80 MG/0.8 ML SYRINGE SC SCH (21:00)
[2018-09-09] MEDS: Lisinopril 5 MG TAB PO SCH (21:27)
[2018-09-09] MEDS: Atorvastatin Calcium 40 MG TAB PO SCH (21:28)
[2018-09-09] MEDS: Metoprolol Tartrate 25 MG TAB PO SCH (21:28)
[2018-09-09] MEDS: Famotidine 20 MG TAB PO SCH (21:28)
[2018-09-10 05:20] LABS: #Basophils 0.1 thou/uL (0.0-0.2); #Eosinphils 0.2 thou/uL (0.0-0.7); #Lymphocytes 1.5 thou/uL (1.20-3.40); #Monocytes 0.5 thou/uL (0.11-0.59); #Neutrophils 3.7 thou/uL (1.40-6.50); %Eosinophils 2.8 % (0.0-10.0); %Lymphocytes 24.8 % (21.0-51.0); %Monocytes 9.1 % (0.0-10.0); %Neutrophils 62.3 % (42.0-75.0); Hemoglobin 12.8 g/dL (14.0-18.0); Mean Corpuscular HGB CONC 32.3 g/dL (32.0-36.0); Mean Corpuscular Hemoglobin 32.1 pg (27.0-31.0); Mean Corpuscular Volume 99.2 fL (78.0-98.0); Mean Platelet Volume 9.1 fL (7.4-10.4); Platelet Count 131 thou/uL (130-400); RBC Distribution Width 13.1 % (11.5-14.5); White Blood Cell (WBC) Count 5.9 thou/uL (4.8-10.8)
[2018-09-10 05:36] LABS: Anion Gap 10 mmol/L (10-20); BUN (Urea Nitrogen) 16 mg/dL (8.4-25.7); Calc. Creatinine Clearance 89 mL/min (70-130); Calcium 9.5 mg/dL (7.8-10.44); Carbon Dioxide 27 mmol/L (23-31); Cardiac Risk 3.2 (Less than 4.5); Chloride 107 mmol/L (98-107); Cholesterol 207 mg/dl (< 200 Desired); Estimated GFR-MDRD Greater than 90; Glucose 93 mg/dL (83-110); HDL Cholesterol 65 mg/dL (>60 Neg Risk); LDL Cholesterol, Calculated 127 mg/dL; Potassium 4.2 mmol/L (3.5-5.1); Sodium 140 mmol/L (136-145); Triglycerides 77 mg/dL (Less than 150)
[2018-09-10] MEDS ORDERED: Aspirin 325 mg Enteric Coated Tablet PO SCH (09:00)
[2018-09-10] MEDS ORDERED: Enoxaparin Sodium 40 MG/0.4 ML SYRINGE SC SCH (09:00)
[2018-09-10] MEDS: Famotidine 20 MG TAB PO SCH ×2 (09:27→20:53)
[2018-09-10] MEDS: Aspirin 81 mg Enteric Coated Tablet PO SCH (09:27)
[2018-09-10] MEDS: Metoprolol Tartrate 25 MG TAB PO SCH ×2 (09:28→20:52)
[2018-09-10] MEDS: Lisinopril 5 MG TAB PO SCH ×2 (09:28→20:52)
[2018-09-10] MEDS: Folic Acid 1 MG TAB PO SCH (09:28)
[2018-09-10] MEDS: Albuterol Sulfate 1.25 MG/3 ML NEB NEB SCH ×2 (15:08→18:47)
--- NOTE | 2018-09-10 17:24 | PDOC.CTH ---
Cardiology Progress Note - Objective Vital Signs Temp Pulse Pulse Pulse Resp BP BP 09/10/18 16:51 73 72 111/69 09/10/18 15:20 98.1 F 70 18 09/10/18 15:08 73 16 09/10/18 15:00 24 H 09/10/18 12:00 24 H 09/10/18 11:08 98.2 F 77 30 H 09/10/18 09:28 74 133/77 09/10/18 08:25 20 09/10/18 07:20 97.6 F 74 28 H 09/10/18 06:29 BP BP Pulse Ox Pulse Ox Pulse Ox 09/10/18 16:51 129/72 95 95 09/10/18 15:20 136/73 94 L 09/10/18 15:08 92 L 09/10/18 15:00 09/10/18 12:00 09/10/18 11:08 114/63 96 09/10/18 09:28 09/10/18 08:25 09/10/18 07:20 133/77 95 09/10/18 06:29 96 Weight 194 lb 11.2 oz 09/09/18 09/10/18 09/11/18 06:59 06:59 06:59 Intake Total 600 240 Output Total 550 Balance 50 240 - Physical Examination General/Neuro: alert & oriented x3, NAD Neck: carotid US brisk, no JVD present Lungs: CTA, unlabored respirations Heart: PMI normal, RRR Abdomen: NT/ND, soft Extremities: + femoral B - Labs Result Diagrams: 09/10/18 04:48 09/10/18 04:48 Troponin/CKMB Troponin I Less than 0.010 ng/mL (< 0.028) 09/09/18 15:46 - Assessment/Plan SOB CAD s/p CABG normal pressure hydrocephalus Much improved today No complaints He would like to go home Pt with chronic SOB in the past with fu cath several yrs ago showing no CAD responsible for underlying symptoms. No changes noted over last several yrs Ok for home from my standpoint
--- NOTE | 2018-09-10 19:42 | PDOC.PN ---
- Subjective Encounter Start Date: 09/10/18 Encounter Start Time: 11:40 Subjective: No new problem. -: SOB is better. -: Remained afebrile. - Objective Resuscitation Status - Order Detail: 09/09/18 15:16 Resuscitation Status Routine Resuscitation Status: FULL: Full Resuscitation Vital Signs & Weight: Vital Signs (12 hours) Temp Pulse Pulse Pulse Resp BP BP 09/10/18 18:47 84 16 09/10/18 16:51 73 72 111/69 09/10/18 15:20 98.1 F 70 18 09/10/18 15:08 73 16 09/10/18 15:00 24 H 09/10/18 12:00 24 H 09/10/18 11:08 98.2 F 77 30 H 09/10/18 09:28 74 133/77 09/10/18 08:25 20 BP BP Pulse Ox Pulse Ox Pulse Ox 09/10/18 18:47 96 09/10/18 16:51 129/72 95 95 09/10/18 15:20 136/73 94 L 09/10/18 15:08 92 L 09/10/18 15:00 09/10/18 12:00 09/10/18 11:08 114/63 96 09/10/18 09:28 09/10/18 08:25 Weight Weight 194 lb 11.2 oz I&O: 09/09/18 09/10/18 09/11/18 06:59 06:59 06:59 Intake Total 600 240 Output Total 550 Balance 50 240 Result Diagrams: 09/10/18 04:48 09/10/18 04:48 Phys Exam - Physical Examination Constitutional: NAD HEENT: moist MMs Neck: supple fair air entry bilaterally. decreased at the bases. tachypneic Cardiovascular: RRR Gastrointestinal: soft, no distention, positive bowel sounds Musculoskeletal: no edema, pulses present Neurological: non-focal Moves all limbs but weakly Psychiatric: A&O x 3 Dx/Plan (1) Left lower lobe pneumonia Code(s): J18.1 - LOBAR PNEUMONIA, UNSPECIFIED ORGANISM Status: Acute (2) Physical deconditioning Code(s): R53.81 - OTHER MALAISE Status: Acute (3) BPH (benign prostatic hyperplasia) Code(s): N40.0 - BENIGN PROSTATIC HYPERPLASIA WITHOUT LOWER URINRY TRACT SYMP Status: Acute (4) Tachypnea Code(s): R06.82 - TACHYPNEA, NOT ELSEWHERE CLASSIFIED Status: Acute (5) CAD (coronary artery disease) Code(s): I25.10 - ATHSCL HEART DISEASE OF [place] CORONARY ARTERY W/O ANG PCTRS Status: Chronic (6) Hyperlipidemia Code(s): E78.5 - HYPERLIPIDEMIA, UNSPECIFIED Status: Chronic (7) Hypertension Code(s): I10 - ESSENTIAL (PRIMARY) HYPERTENSION Status: Chronic (8) Acute coronary syndrome Code(s): I24.9 - ACUTE ISCHEMIC HEART DISEASE, UNSPECIFIED Status: Acute - Plan Start bronchodilators and mucinex. -: Start IS. continue antibiotics. -: Continjue antithrombotic therapy -: Consult PT * .
[2018-09-10] MEDS: guaiFENesin ER 600 MG TAB PO SCH (20:52)
[2018-09-10] MEDS: Enoxaparin Sodium 100 MG/ML SYRINGE SC SCH (20:53)
[2018-09-10] MEDS: Atorvastatin Calcium 40 MG TAB PO SCH (20:53)
[2018-09-10] MEDS ORDERED: Enoxaparin Sodium 80 MG/0.8 ML SYRINGE SC SCH (21:00)
[2018-09-11] MEDS: Albuterol Sulfate 1.25 MG/3 ML NEB NEB SCH ×4 (00:30→18:36)
[2018-09-11 08:05] LABS: Hemoglobin 13.5 g/dL (14.0-18.0); Platelet Count 137 thou/uL (130-400)
[2018-09-11] MEDS: Enoxaparin Sodium 100 MG/ML SYRINGE SC SCH (08:29)
[2018-09-11] MEDS: Lisinopril 5 MG TAB PO SCH (08:30)
[2018-09-11] MEDS: Famotidine 20 MG TAB PO SCH (08:30)
[2018-09-11] MEDS: guaiFENesin ER 600 MG TAB PO SCH (08:30)
[2018-09-11] MEDS: Folic Acid 1 MG TAB PO SCH (08:31)
[2018-09-11] MEDS: Aspirin 81 mg Enteric Coated Tablet PO SCH (08:31)
[2018-09-11] MEDS: Metoprolol Tartrate 25 MG TAB PO SCH (08:31)
--- NOTE | 2018-09-11 12:36 | PDOC.PN ---
- Subjective Encounter Start Date: 09/11/18 Encounter Start Time: 12:34 Subjective: Feeling better today. -: Developed dizziness after antihypertensives. -: SOB has subsided. Remained afebrile. - Objective Resuscitation Status - Order Detail: 09/09/18 15:16 Resuscitation Status Routine Resuscitation Status: FULL: Full Resuscitation Vital Signs & Weight: Vital Signs (12 hours) Temp Pulse Pulse Pulse Resp BP BP 09/11/18 11:53 99.2 F 87 18 09/11/18 10:11 09/11/18 09:06 94 89 113/68 112/56 L 09/11/18 07:43 72 18 09/11/18 07:25 97.4 F L 65 18 09/11/18 03:01 97.4 F L 83 20 BP Pulse Ox 09/11/18 11:53 89/55 L 95 09/11/18 10:11 87/54 L 09/11/18 09:06 09/11/18 07:43 09/11/18 07:25 127/67 94 L 09/11/18 03:01 143/80 H 95 Weight Weight 194 lb 11.2 oz I&O: 09/10/18 09/11/18 09/12/18 06:59 06:59 06:59 Intake Total 600 1580 Output Total 550 Balance 50 1580 Result Diagrams: 09/11/18 07:54 09/11/18 07:54 Phys Exam - Physical Examination Constitutional: NAD HEENT: moist MMs Neck: no JVD, supple Respiratory: no rhonchi fair air entry with trabnnsmitted sound Cardiovascular: RRR Gastrointestinal: soft, no distention, positive bowel sounds Musculoskeletal: no edema Neurological: non-focal conscious and alert, moving all limbs but weakly Dx/Plan (1) Acute coronary syndrome Code(s): I24.9 - ACUTE ISCHEMIC HEART DISEASE, UNSPECIFIED Status: Acute (2) Left lower lobe pneumonia Code(s): J18.1 - LOBAR PNEUMONIA, UNSPECIFIED ORGANISM Status: Acute (3) Physical deconditioning Code(s): R53.81 - OTHER MALAISE Status: Acute (4) BPH (benign prostatic hyperplasia) Code(s): N40.0 - BENIGN PROSTATIC HYPERPLASIA WITHOUT LOWER URINRY TRACT SYMP Status: Acute (5) Tachypnea Code(s): R06.82 - TACHYPNEA, NOT ELSEWHERE CLASSIFIED Status: Acute (6) CAD (coronary artery disease) Code(s): I25.10 - ATHSCL HEART DISEASE OF [place] CORONARY ARTERY W/O ANG PCTRS Status: Chronic (7) Hyperlipidemia Code(s): E78.5 - HYPERLIPIDEMIA, UNSPECIFIED Status: Chronic (8) Hypertension Code(s): I10 - ESSENTIAL (PRIMARY) HYPERTENSION Status: Chronic (9) Hypotension due to medication Status: Acute - Plan Continue antibiotic and bronchodilators -: Continue antithrombotic therapy. -: Decrease imdur to 30 mg daily -: Monitor vitals closely. -: Consult case mgt to help with discharge planning. * .
[2018-09-11 16:03] VITALS: BP 139/86; TEMP 98
--- NOTE | 2018-09-13 14:18 | EKG ---
Test Reason : Blood Pressure : / mmHG Vent. Rate : 076 BPM Atrial Rate : 076 BPM P-R Int : 160 ms QRS Dur : 148 ms QT Int : 400 ms P-R-T Axes : 000 -62 013 degrees QTc Int : 450 ms Normal sinus rhythm Right bundle branch block Left anterior fascicular block Bifascicular block Moderate voltage criteria for LVH, may be normal variant Abnormal ECG T wave inversion V1, V2 No change from 12/22/2017 Confirmed by SULEMA VERDUZCO DO ([id number]), digital editor ELVIA BRICE ([id number]) on 09/13/2018 2:17:45 PM Referred By: Confirmed By:SULEMA VERDUZCO DO
== END 2018-09-11 19:57 | DRG 194 ==
LOC: ERS 09:33 → ERHOLD 13:03 → 2SW 15:33 → OBSVTOIN 09-11 12:33
PROVIDERS: ADMIT Internal Medicine; ATTEND Internal Medicine
DX: J18.1 Lobar pneumonia, unspecified organism (principal); I24.9 Acute ischemic heart disease, unspecified; G91.2 (Idiopathic) normal pressure hydrocephalus; I10 Essential (primary) hypertension; I25.10 Atherosclerotic heart disease of native coronary artery without angina pectoris; E78.5 Hyperlipidemia, unspecified; I25.2 Old myocardial infarction; I34.0 Nonrheumatic mitral (valve) insufficiency; R53.81 Other malaise; N40.0 Benign prostatic hyperplasia without lower urinary tract symptoms; I95.2 Hypotension due to drugs; R06.82 Tachypnea, not elsewhere classified; Z96.653 Presence of artificial knee joint, bilateral; Z85.46 Personal history of malignant neoplasm of prostate; Z95.1 Presence of aortocoronary bypass graft; Z90.79 Acquired absence of other genital organ(s); Z87.891 Personal history of nicotine dependence
CPT/HCPCS: 36415; 71045; 71275; 80048; 80053; 80061; 81003; 82565; 83880; 84484; 85014; 85018; 85025; 85049; 87040; 93005; 94640; 94760; J1650; J1956

== ENCOUNTER 2019-12-28 12:52 | Emergency (ER) | payer MEDICARE ==
[2019-12-28 13:42] LABS: #Eosinphils 0.1 thou/uL (0.0-0.7); #Lymphocytes 0.8 thou/uL (1.20-3.40); #Monocytes 0.3 thou/uL (0.11-0.59); #Neutrophils 4.2 thou/uL (1.40-6.50); %Basophils 0.2 % (0.0-1.0); %Eosinophils 1.4 % (0.0-10.0); %Lymphocytes 15.1 % (21.0-51.0); %Monocytes 5.6 % (0.0-10.0); %Neutrophils 77.7 % (42.0-75.0); Hemoglobin 11.8 g/dL (14.0-18.0); Mean Corpuscular HGB CONC 32.3 g/dL (32.0-36.0); Mean Corpuscular Hemoglobin 31.6 pg (27.0-31.0); Mean Corpuscular Volume 97.9 fL (78.0-98.0); Mean Platelet Volume 9.8 fL (7.4-10.4); Platelet Count 132 thou/uL (130-400); Red Blood Cell (RBC) Count 3.73 mill/uL (4.70-6.10); White Blood Cell (WBC) Count 5.4 thou/uL (4.8-10.8)
--- NOTE | 2019-12-28 13:51 | RAD ---
XR Chest 1 View Portable HISTORY: Altered mental status COMPARISON: 09/09/2018 FINDINGS: There are changes of median sternotomy. The heart size is borderline but stable. The aorta is tortuous. Right internal jugular central line remains in place. Mild bibasilar opacities may be due to atelectatic changes. No lobar consolidation, pneumothoraces or large effusions are seen.
--- NOTE | 2019-12-28 14:01 | CT ---
CT BRAIN WITHOUT CONTRAST: HISTORY:Altered mental status COMPARISON:12/22/2017 FINDINGS: Right frontal ventriculostomy tube remains in place. There are foci of decreased attenuation in the p eriventricular white matter, consistent with chronic small vessel ischemic disease. Subcortical hypodensity underlying the anterior aspect of the right insular ribbon is stable. No evidence of acute infarct, hemorrhage, midline shift or abnormal extra-axial fluid collections is seen. The ventricular size is appropriate and the basilar cisterns are patent. The bony calvarium is intact. The visualized paranasal sinuses and mastoid air cells are well aerated. IMPRESSION: No CT evidence of acute intracranial process.
[2019-12-28 14:07] LABS: ALT (SGPT) 13 U/L (8-55); AST (SGOT) 13 U/L (5-34); Albumin 3.9 g/dL (3.4-4.8); Alkaline Phosphatase 80 U/L (40-110); Anion Gap 11 mmol/L (10-20); BUN (Urea Nitrogen) 19 mg/dL (8.4-25.7); Bilirubin, Total 0.8 mg/dL (0.2-1.2); CK (CPK) 44 U/L (30-200); Calc. Creatinine Clearance 0 mL/min (70-130); Calcium 8.9 mg/dL (7.8-10.44); Carbon Dioxide 27 mmol/L (23-31); Chloride 107 mmol/L (98-107); Estimated GFR-MDRD 86; Globulin 2.3 g/dL (2.4-3.5); Glucose 161 mg/dL (83-110); Lipase 18 U/L (8-78); Magnesium 2.1 mg/dL (1.6-2.6); Protein, Total 6.2 g/dL (5.8-8.1); Sodium 141 mmol/L (136-145)
[2019-12-28 14:55] LABS: Bilirubin Negative (Negative); Blood, Urine Trace (Negative); Glucose, Urine (Dipstick) Negative (Negative); Ketone, Urine Negative (Negative); Leukocyte Negative (Negative); Nitrite Negative (Negative); Protein, Urine (Dipstick) Negative (Neg-Trace); Urobilinogen 0.2 mg/dL (Less than 2)
[2019-12-28 14:56] LABS: Clarity Clear (Clear)
[2019-12-28 15:09] LABS: Bacteria/HPF None Seen HPF (None Seen); RBC/HPF 0-3 HPF (0-3); WBC/HPF 0-3 HPF (0-3)
== END 2019-12-28 16:17 | disposition home or self-care (01) ==
LOC: ERS 12:52
DX: R53.1 Weakness (principal); R41.0 Disorientation, unspecified; E78.5 Hyperlipidemia, unspecified; I10 Essential (primary) hypertension; I25.2 Old myocardial infarction; Z79.82 Long term (current) use of aspirin; Z79.899 Other long term (current) drug therapy
CPT/HCPCS: 36415; 51701; 70450; 71045; 80053; 81003; 81015; 82550; 83690; 83735; 84484; 85025; 93005; 96360

== ENCOUNTER 2020-06-06 11:27 | Inpatient (IN) | payer MEDICARE ==
[2020-06-06 12:31] LABS: #Lymphocytes 0.6 thou/uL (1.20-3.40); #Monocytes 0.6 thou/uL (0.11-0.59); #Neutrophils 6.7 thou/uL (1.40-6.50); %Basophils 0.2 % (0.0-1.0); %Eosinophils 0.1 % (0.0-10.0); %Neutrophils 83.8 % (42.0-75.0); Hemoglobin 15.4 g/dL (14.0-18.0); Mean Corpuscular HGB CONC 32.1 g/dL (32.0-36.0); Mean Corpuscular Hemoglobin 31.5 pg (27.0-31.0); Mean Corpuscular Volume 98.2 fL (78.0-98.0); Mean Platelet Volume 10.1 fL (7.4-10.4); Platelet Count 130 thou/uL (130-400); RBC Distribution Width 13.3 % (11.5-14.5); Red Blood Cell (RBC) Count 4.89 mill/uL (4.70-6.10)
[2020-06-06] MEDS ORDERED: Acetaminophen 325 MG TAB ONE (12:34)
--- NOTE | 2020-06-06 12:46 | RAD ---
EXAM: Portable chest PROVIDED CLINICAL HISTORY: Altered mental status COMPARISON: 12/28/2019 FINDINGS: Cardiac and mediastinal silhouette is within normal limits. No focal consolidation, pleural fluid or pneumothorax evident. Median sternotomy changes and presumed CYLINDER MACHINE OPERATOR shunt tubing redemonstrated. Colonic interposition beneath the right hemidiaphragm is again seen. Chronic left rotator cuff tear r edemonstrated. IMPRESSION: No evidence for an acute cardiopulmonary process.
[2020-06-06 12:52] LABS: ALT (SGPT) 22 U/L (8-55); AST (SGOT) 42 U/L (5-34); Albumin 4.9 g/dL (3.4-4.8); Alkaline Phosphatase 98 U/L (40-110); Anion Gap 18 mmol/L (10-20); BUN (Urea Nitrogen) 14 mg/dL (8.4-25.7); Calc. Creatinine Clearance 0 mL/min (70-130); Calcium 9.5 mg/dL (7.8-10.44); Carbon Dioxide 27 mmol/L (23-31); Chloride 99 mmol/L (98-107); Globulin 3.3 g/dL (2.4-3.5); Glucose 127 mg/dL (83-110); Potassium 4.4 mmol/L (3.5-5.1); Protein, Total 8.2 g/dL (5.8-8.1); Sodium 140 mmol/L (136-145)
[2020-06-06 12:52] LABS: Bilirubin Negative (Negative); Blood, Urine 2+ (Negative); Clarity Clear (Clear); Glucose, Urine (Dipstick) 50 mg/dL (Negative); Ketone, Urine 20 mg/dL (Negative); Leukocyte Negative Leu/uL (Negative); Nitrite Negative (Negative); Protein, Urine (Dipstick) 70 mg/dL (Neg-Trace); RBC/HPF 0-3 HPF (0-3); Specific Gravity, Urine 1.021 (1.002-1.036); Squamous Epithelial 0-3 HPF (0-3); Urobilinogen Normal mg/dL (Less than 2); WBC/HPF 0-3 HPF (0-3)
[2020-06-06 12:53] LABS: Bacteria/HPF 1+ HPF (None Seen)
[2020-06-06] MEDS ORDERED: Vancomycin 1 GM/200 ML BAG ONE (13:11)
[2020-06-06] MEDS ORDERED: Cefepime 2 GM VIAL ONE (13:11)
[2020-06-06 13:44] LABS: CKMB 16.9 ng/mL (0-6.6)
--- NOTE | 2020-06-06 13:45 | RAD ---
RIGHT KNEE 4 VIEWS:: Date: 06/06/2020 HISTORY: Injury with pain. FINDINGS: Knee prosthesis is noted. Components appear in adequate position and alignment. No evidence of acute fracture. IMPRESSION: No acute findings. POS: AGW
[2020-06-06] MEDS ORDERED: Aspirin Chewable 81 MG TAB ONE (14:03)
--- NOTE | 2020-06-06 14:26 | CT ---
CT HEAD WITHOUT CONTRAST: INDICATION: Mental status change. COMPARISON: Comparison is made to head CT of 12/28/2019. FINDINGS: Mild cortical atrophy. Mild ventriculomegaly which appears stable. Ventriculostomy tube in place vi a the right frontal lobe, stable from prior exam. This tube enters the right lateral ventricle where it is unchanged in position. Mild chronic ischemic white matter change. No evidence of acute hemor rhage, mass, or infarct. Paranasal sinuses and mastoids appear clear. IMPRESSION: No acute process. POS: AGW
[2020-06-06 14:31] LABS: SARS-CoV-2 NAA Rapid Test DETECTED (NotDetected)
[2020-06-06 17:24] LABS: Lactic Acid 2.1 mmol/L (0.5-2.2)
--- NOTE | 2020-06-06 19:15 | HP ---
PRIMARY CARE PHYSICIAN: Black Lucas MD CHIEF COMPLAINT: Frequent falls. HISTORY OF PRESENT ILLNESS: Mr. Xie is an 85-year-old gentleman who has a history of hypertension and coronary artery disease. He was brought in by family members due to concerns for frequent falls. He lives at home with his and they have a caregiver who comes in. Apparently, he has fallen several times and had been significantly weak and for this reason, he was brought to the hospital. A CT scan of the brain was done, which was negative. He had a slightly elevated troponin and urinalysis, which was significant for 1+ bacteria and some blood. However, his COVID screen came back positive and it was noted by the ER physician that multiple family members are positive for COVID. He was not hypoxic and he only has an occasional cough when I am in the room. He is saturating 100% on room air, but due to the frequent falls, he is being brought in for evaluation as well as for the urine infection. REVIEW OF SYSTEMS: This is unobtainable as the patient is confused and/or has dementia. PAST MEDICAL HISTORY: Significant for hypertension, coronary artery disease, normal pressure hydrocephalus, and prostate cancer. PAST SURGICAL HISTORY: He has had a coronary artery bypass grafting, total knee replacement. He has had a MARKETING AND PUBLIC RELATIONS MANAGER shunt placed and a prostatectomy. ALLERGIES: NO KNOWN DRUG ALLERGIES. SOCIAL HISTORY: He is a former smoker. Denies any alcohol use. He lives with his and they have a provider who comes in. On his last admission, he was a full code back in September 2018. Therefore, we will continue with full code status. FAMILY HISTORY: Significant for coronary artery disease. CURRENT MEDICATIONS: Taken from the ER records include: 1. Lisinopril 5 mg p.o. daily. 2. Isosorbide mononitrate extended release 60 mg daily. 3. Atorvastatin 40 mg daily. 4. Aspirin 81 mg a day. 5. Furosemide 20 mg daily. 6. Metoprolol 25 mg 1/2 tablet twice daily. PHYSICAL EXAMINATION: GENERAL: He is awake and alert, but he is disoriented. He does not know that this is a hospital. He was only correct with telling me the month, which was June and he keeps asking when are they going to release me. VITAL SIGNS: Blood pressure was 135/94, heart rate 112, respiratory rate of 25, temperature is 98.8. HEENT: Pupils are equal, round, and reactive. Extraocular muscles are intact. Sclerae anicteric. NECK: No adenopathy. No bruits. LUNGS: He has some rhonchi, but no rales and no wheezing. CARDIOVASCULAR: He has a normal S1 and S2. There is no S3 or S4. He does have a grade 2/6 systolic murmur. ABDOMEN: Soft, nontender, nondistended. Positive for bowel sounds. No rebound. No guarding. No organomegaly. EXTREMITIES: He has 1+ edema. No calf tenderness. He does have some mild erythema over the right knee, but there is no effusion. There is no warmth. On his feet, his dorsalis pedis pulses are nonpalpable. However, I am able to palpate a posterior tibial, although it is a bit weak and thready and more diminished on the right and on the right, he has some hammertoe and bunion deformities on the feet and chronic venous stasis changes and the feet are slightly cool. NEUROLOGIC: He is moving all extremities. LABORATORY RESULTS: White blood cell count 8, hemoglobin 15.4, hematocrit 48.1, and platelet count is 130. Sodium 140, potassium 4.4, chloride is 99, CO2 is 27, BUN of 14, creatinine 0.85, glucose is 127. Lactic acid 2.8. Troponin 0.337. Urinalysis is 1+ bacteria, 2+ blood. His SARS-CoV-2 Rapid PCR was positive or the COVID test was positive. On chest x-ray, there is a poor inspiratory effort, but there may be some mild cardiomegaly and some chronic changes. ASSESSMENT: 1. This is a pleasant 85-year-old gentleman who presents to the emergency room with mild metabolic encephalopathy and frequent falls and generalized weakness. I suspect as a result of the COVID-19 infection. He also has some bacteriuria and pyuria as well. He will be admitted to the telemetry due to the elevated troponin. We will continue to monitor his troponins and place him on cautious IV fluids. 2. COVID-19 infection. He appears to be relatively asymptomatic with exception of generalized weakness and possibly the mild encephalopathy. His oxygen saturations were 100% on room air even with a mask on. It is unknown the start date of his symptoms and since he is not hypoxic, we will hold off on Decadron and we will also hold off on remdesivir at this time. However, we will start and continue to monitor inflammatory markers. 3. Hypertension. We will need to reconcile and restart his home medications. 4. Frequent fall. This appears to be fairly recent again likely due to the COVID infection. We will place a PT/OT consult and also consult Case Management in that the patient may need additional help at home and the patient will also be placed on deep venous thrombosis and gastrointestinal prophylaxis. Job ID: [id number]
[2020-06-06] MEDS ORDERED: hydrALAZINE 20 MG/ML VIAL SLOW IVP PRN (19:49)
[2020-06-06] MEDS ORDERED: Acetaminophen 325 MG TAB PO PRN (19:49)
[2020-06-06] MEDS ORDERED: Benzonatate 100 MG CAP PO PRN (19:49)
[2020-06-06 20:35] LABS: Troponin I 0.536 ng/mL (< 0.028)
[2020-06-06] MEDS: Lactated Ringer's 1,000 ML IV SCH (21:40)
[2020-06-06] MEDS ORDERED: Metoprolol Tartrate 25 MG TAB ONE (22:26)
[2020-06-06] MEDS: Metoprolol Tartrate 25 MG TAB PO SCH (22:46)
[2020-06-06] MEDS: Atorvastatin Calcium 40 MG TAB PO SCH (22:46)
[2020-06-07] MEDS: cefTRIAXone\\ROCEPHIN 1 GM in Sodium Chloride 0.9% 100 ML IVPB SCH (02:30)
[2020-06-07] MEDS ORDERED: cefTRIAXone\\ROCEPHIN 1 GM VIAL ONE (02:59)
[2020-06-07 05:57] LABS: Hemoglobin 13.8 g/dL (14.0-18.0); Mean Corpuscular HGB CONC 31.7 g/dL (32.0-36.0); Mean Corpuscular Hemoglobin 31.1 pg (27.0-31.0); Mean Corpuscular Volume 98.2 fL (78.0-98.0); RBC Distribution Width 13.2 % (11.5-14.5); Red Blood Cell (RBC) Count 4.43 mill/uL (4.70-6.10); White Blood Cell (WBC) Count 6.5 thou/uL (4.8-10.8)
[2020-06-07 06:12] LABS: Anion Gap 13 mmol/L (10-20); BUN (Urea Nitrogen) 15 mg/dL (8.4-25.7); CRP (Inflammatory) 0.68 mg/dL (= or < 0.5); Calc. Creatinine Clearance 0 mL/min (70-130); Calcium 8.6 mg/dL (7.8-10.44); Carbon Dioxide 25 mmol/L (23-31); Chloride 104 mmol/L (98-107); Glucose 96 mg/dL (83-110); Potassium 4.2 mmol/L (3.5-5.1); Sodium 138 mmol/L (136-145)
[2020-06-07 06:25] LABS: Band 10 % (5-11); Lymphocytes 17 % (21-51); MDiff Complete? YES; Mean Platelet Volume 10.6 fL (7.4-10.4); Monocytes 18 % (0-10); Neutrophil 53 % (42-75); Platelet Count 110 thou/uL (130-400); Platelet Morphology Comment Appears Decreased; RBC Morphology Normal; Reactive Lymphocytes 2 % (0-10)
[2020-06-07] MEDS ORDERED: Lisinopril 5 MG TAB PO SCH (09:00)
[2020-06-07] MEDS ORDERED: Metoprolol Tartrate 25 MG TAB ONE (13:54)
[2020-06-07] MEDS ORDERED: Aspirin 81 mg Enteric Coated Tablet ONE (13:54)
[2020-06-07] MEDS ORDERED: Enoxaparin Sodium 30 MG/0.3 ML SYRINGE ONE (13:54)
[2020-06-07] MEDS: Aspirin 81 mg Enteric Coated Tablet PO SCH (14:01)
[2020-06-07] MEDS: Enoxaparin Sodium 30 MG/0.3 ML SYRINGE SC SCH (14:01)
[2020-06-07] MEDS: Metoprolol Tartrate 25 MG TAB PO SCH (14:02)
--- NOTE | 2020-06-07 15:04 | PDOC.DS.DS ---
Provider - Provider Date of Admission: 06/06/20 15:01 Date of Discharge: 06/07/20 Admitting Provider: Rob Amanda MD Primary Care Physician: WINTER GOFF MD Course - Hospital Course Hospital Course: Patient was admitted for frequent falls, CT brain was negative, his troponin was positive, U/A was weakly positive for bacteriuria, his covid 19 serology was pos itive, but he did not require oxygen supplementation, he remained a bit confused but in no acute distress. He received IVF and did well overnight. I called his granddaughter Myrtle, she informed me that he is a DNR, she told me that her parents are covid positive, that her granddad always has a positive trop when he gets sick and hospitalized, I reviewed his records and indeed during his last hospital stay he had positive trops and was seen by Cardiology, recommendation was for medical management. In view of the above, Yamila preferred him to go back home, his who is also demented is asking for him. The quality of his day life would be better at home. I offered to keep him and let PT assess him, Myrtle said that this was done before and that they have home help established. Patient will be discharged on Keflex for possible UTI, his urine culture was positive for alpha hemolytic strep. He needs follow up with PCP in a week. - Labs Lab Results: 06/07/20 05:40 06/07/20 05:40 Abnormal Lab Results - Last 48 hrs 06/06/20 12:00: Lactic Acid 2.8 H 06/06/20 12:14: CK-MB (CK-2) 16.9 H*, Troponin I 0.337 H* 06/06/20 12:14: AST 42 H, Serum Total Protein 8.2 H, Albumin 4.9 H 06/06/20 12:14: MCV 98.2 H, MCH 31.5 H, Neutrophils % 83.8 H, Lymphocytes % 8.0 L, Neutrophils # 6.7 H, Lymphocytes # 0.6 L, Monocytes # 0.6 H 06/06/20 12:15: Urine Protein 70 A, Urine Ketones 20 A, Urine Blood 2+ A, Urine Bacteria 1+ A 06/06/20 13:25: SARS-CoV-2 Rap RNA(RT-PCR) DETECTED A* 06/06/20 17:00: Troponin I 0.460 H* 06/06/20 19:55: Troponin I 0.536 H* 06/07/20 05:40: C-Reactive Protein 0.68 H 06/07/20 05:40: RBC 4.43 L, Hgb 13.8 L, MCV 98.2 H, MCH 31.1 H, MCHC 31.7 L, Plt Count 110 L, MPV 10.6 H, Lymphocytes % (Manual) 17 L, Monocytes % (Manual) 18 H, Plt Morphology Comment Appears Decreased L 06/07/20 05:40: D-Dimer 2.58 H Microbiology - Entire Visit 06/06/20 12:15 Urine Straight Catheter Urine Culture - Preliminary Alpha-Hemolytic Streptococcus 06/06/20 12:14 Venous blood - Left Arm Blood Culture - Preliminary Specimen has been received and culture in progress. No Growth to date. 06/06/20 12:14 Venous blood - Right Arm Blood Culture - Preliminary Specimen has been received and culture in progress. No Growth to date. - Physical Exam Physical Exam: The patient was seen and examined on the day of discharge. Problem - Problem (1) COVID-19 Code(s): U07.1 - COVID-19 Status: Acute (2) Elevated troponin Code(s): R77.8 - OTHER SPECIFIED ABNORMALITIES OF PLASMA PROTEINS Status: Acute (3) Dementia Code(s): F03.90 - UNSPECIFIED DEMENTIA WITHOUT BEHAVIORAL DISTURBANCE Status: Acute (4) Physical deconditioning Code(s): R53.81 - OTHER MALAISE Status: Acute (5) UTI (urinary tract infection) Status: Acute - Time spent with Patient (mins): 35 Plan - Discharge Medications Prescriptions: Cephalexin [Keflex] 500 mg PO Q12H #10 cap Home Medications: Medication Instructions Recorded Confirmed Type Aspirin [Low Dose Aspirin EC] 81 mg PO DAILY 10/12/14 06/11/20 History Metoprolol Tartrate [Lopressor] 12.5 mg PO BID 09/09/18 06/11/20 History Atorvastatin Calcium [Lipitor] 40 mg PO HS tab 09/11/18 06/11/20 Rx Isosorbide Mononitrate [Imdur ER] 60 mg PO DAILY 06/06/20 06/11/20 History Cephalexin [Keflex] 500 mg PO Q12H #10 cap 06/07/20 06/11/20 Rx Allergies: No Known Drug Allergies Allergy (Verified 06/06/20 16:47) - Follow up Plan Referrals: WINTER GOFF MD [Primary Care Provider] - 7 Days (Call office to schedule appointment. Bring a copy of your discharge paperwork, including your current medication list.) Disposition: HOME HEALTH Quality - Care Measures CORE MEASURES:: N/A
--- NOTE | 2020-06-07 18:12 | PDOC.HOSPP ---
- Subjective Encounter Date: 06/07/20 Subjective: in no acute distress. - Objective Result Diagrams: 06/07/20 05:40 06/07/20 05:40 Hospitalist ROS - Medication Medications: Active Medications Generic Name Dose Route Start Last Admin Trade Name Danielq PRN Reason Stop Dose Admin Aspirin 81 mg 06/07/20 09:00 06/07/20 14:01 Aspirin 81 Mg Enteric Coated Tablet PO 81 mg DAILY AMERICA Administration Atorvastatin Calcium 40 mg 06/06/20 21:00 06/06/20 22:46 Atorvastatin Calcium 40 Mg Tab PO 40 mg HS AMERICA Administration Enoxaparin Sodium 30 mg 06/07/20 09:00 06/07/20 14:01 Enoxaparin Sodium 30 Mg/0.3 Ml Syringe SC 30 mg 0900 AMERICA Administration Lactated Ringer's 1,000 mls @ 50 mls/hr 06/06/20 19:49 06/06/20 21:40 Lactated Ringer's IV 1,000 mls .Q20H AMERICA Administration Ceftriaxone Sodium 1 gm/ 100 mls @ 200 mls/hr 06/07/20 02:00 06/07/20 02:30 Sodium Chloride IVPB 100 mls Q24HR AMERICA Administration Isosorbide Mononitrate 60 mg 06/07/20 09:00 06/07/20 14:02 Isosorbide Mononitrate Er 60 Mg Tab PO 60 mg DAILY AMERICA Administration Lisinopril 5 mg 06/07/20 09:00 06/07/20 14:02 Lisinopril 5 Mg Tab PO 5 mg DAILY AMERICA Administration Metoprolol Tartrate 12.5 mg 06/06/20 21:00 06/07/20 14:02 Metoprolol Tartrate 25 Mg Tab PO 12.5 mg BID AMERICA Administration - Exam General Appearance: NAD (confused and hard of hearing.) Eye: PERRL ENT: normocephalic atraumatic Neck: supple Heart: RRR Respiratory: normal chest expansion (poor inspiratroy effort.) Gastrointestinal: soft, non-tender Skin: normal turgor Neurological: cranial nerve grossly intact, normal sensation to touch Hosp A/P (1) COVID-19 Code(s): U07.1 - COVID-19 Status: Acute (2) Elevated troponin Code(s): R77.8 - OTHER SPECIFIED ABNORMALITIES OF PLASMA PROTEINS Status: Acute (3) Dementia Code(s): F03.90 - UNSPECIFIED DEMENTIA WITHOUT BEHAVIORAL DISTURBANCE Status: Acute (4) Physical deconditioning Code(s): R53.81 - OTHER MALAISE Status: Acute (5) UTI (urinary tract infection) Status: Acute - Plan please see my discharge note; as RN was preparing for discharge, patient became hypotensive and desaturated. I will start him on IV Decadron. IVF bolus was given with good response. I spoke with Myrtle again , we will keep him in the hospital for now and reassess tomorrow. I will maintain him on IVF. will stop his BP meds. He is DNR as per his family and an out of the hospital DNR.
[2020-06-07] MEDS ORDERED: Dexamethasone 10 MG/ML VIAL ONE (19:02)
[2020-06-07] MEDS ORDERED: Dexamethasone 4 mg/ml Vial SLOW IVP SCH (21:15)
[2020-06-08] MEDS: Atorvastatin Calcium 40 MG TAB PO SCH ×2 (00:59→20:14)
[2020-06-08] MEDS: cefTRIAXone\\ROCEPHIN 1 GM in Sodium Chloride 0.9% 100 ML IVPB SCH (02:54)
[2020-06-08 04:25] VITALS: BMI 24.6
[2020-06-08 05:43] LABS: #Lymphocytes 0.6 thou/uL (1.20-3.40); #Monocytes 0.3 thou/uL (0.11-0.59); #Neutrophils 2.9 thou/uL (1.40-6.50); %Eosinophils 0.2 % (0.0-10.0); %Lymphocytes 16.3 % (21.0-51.0); %Monocytes 7.5 % (0.0-10.0); %Neutrophils 75.9 % (42.0-75.0); Hemoglobin 13.4 g/dL (14.0-18.0); Mean Corpuscular HGB CONC 33.3 g/dL (32.0-36.0); Mean Corpuscular Hemoglobin 32.8 pg (27.0-31.0); Mean Corpuscular Volume 98.4 fL (78.0-98.0); Mean Platelet Volume 10.7 fL (7.4-10.4); Platelet Count 106 thou/uL (130-400); RBC Distribution Width 13.1 % (11.5-14.5); Red Blood Cell (RBC) Count 4.07 mill/uL (4.70-6.10); White Blood Cell (WBC) Count 3.8 thou/uL (4.8-10.8)
[2020-06-08 05:58] LABS: Anion Gap 15 mmol/L (10-20); BUN (Urea Nitrogen) 19 mg/dL (8.4-25.7); CRP (Inflammatory) 0.54 mg/dL (= or < 0.5); Calc. Creatinine Clearance 79 mL/min (70-130); Calcium 8.4 mg/dL (7.8-10.44); Carbon Dioxide 24 mmol/L (23-31); Chloride 105 mmol/L (98-107); Glucose 107 mg/dL (83-110); Potassium 4.2 mmol/L (3.5-5.1); Sodium 140 mmol/L (136-145)
[2020-06-08] MEDS: Aspirin 81 mg Enteric Coated Tablet PO SCH (08:53)
[2020-06-08] MEDS: Dexamethasone 6 MG in Sodium Chloride 0.9% 50 ML IVPB SCH (08:53)
[2020-06-08] MEDS: Enoxaparin Sodium 30 MG/0.3 ML SYRINGE SC SCH (08:53)
[2020-06-08] MEDS: Lactated Ringer's 1,000 ML IV SCH (08:56)
[2020-06-08] MEDS ORDERED: FLU VACC QS2020-21(65YR UP)/PF 240 MCG/0.7 ML SYRINGE IM ONE (09:00)
--- NOTE | 2020-06-08 10:52 | PQF ---
CLINICAL DOCUMENTATION CLARIFICATION FORM: Dear Dr. CARLOS PAUL Date: 06-08-20 Please exercise your independent, professional judgment in responding to the clarification form. Clinical indicators are provided on the bottom of this form for your review. Please check appropriate box(es): AMI TYPE: [ ] Type 1 NH (STEMI) [ y] Type 2 NH (T2MI) secondary to: [ y] Infection [ ] other [ ] Demand Ischemia [ ] Other [ ] Unable to determine In addition, please specify: Present on Admission (POA): [yes ] Yes [ ] No [ ] Unable to determine For continuity of documentation, please document condition throughout progress notes and discharge summary. Thank You. To be completed by CDI/Coding staff for physician review: CLINICAL INDICATORS - SIGNS / SYMPTOMS / LABS / RESULTS AND LOCATION IN EMR: ER DX 06-06-20: NSTEMI, ALTERED MENTAL STATUS H&P: 06-06-20: HX HTN, CAD, NORMAL PRESSURE HYDROCEPHALUS, PROSTATE CANCER; ADMITTED TO TELEMETRY DUE TO THE ELEVATED TROPONIN. WE WILL CONTINUE TO MONITOR HIS TROPONINS AND PLACE HIM ON CAUTIOUS IVF. TROPONIN 06-06-20: 0.337, 0.460, 0.[address] PAUL 06-07-20: RN WAS PREPARING FOR D/C, PATIENT BECAME HYPOTENSIVE AND DESATURATED. RISKS / RESULTS AND LOCATION IN EMR: H&P: 06-06-20: HX HTN, CAD, NORMAL PRESSURE HYDROCEPHALUS, PROSTATE CANCER; ADMITTED TO TELEMETRY DUE TO THE ELEVATED TROPONIN. WE WILL CONTINUE TO MONITOR HIS TROPONINS AND PLACE HIM ON CAUTIOUS IVF. TREATMENTS / RESULTS AND LOCATION IN EMR: H&P: 06-06-20: HX HTN, CAD, NORMAL PRESSURE HYDROCEPHALUS, PROSTATE CANCER; ADMITTED TO TELEMETRY DUE TO THE ELEVATED TROPONIN. WE WILL CONTINUE TO MONITOR HIS TROPONINS AND PLACE HIM ON CAUTIOUS IVF. ER NOTES 06-06-20: ASA, NS IVF CDS Signature: Mallory Soria Phone #: [phone] Date: 06-08-20 This is a permanent part of the Medical Record [facility]
--- NOTE | 2020-06-08 10:52 | RAD ---
PORTABLE CHEST: HISTORY: Respiratory distress. COMPARISON: 06/06/2020 study. FINDINGS: Heart size is enlarged. There are postop sternotomy changes seen. Elevation noted to the right laurie diaphragm. No infiltrative lung process or interval change since the prior study. IMPRESSION: Stable exam. POS: [facility]
--- NOTE | 2020-06-08 15:02 | PDOC.HOSPP ---
- Subjective Encounter Date: 06/08/20 Subjective: well appearing, eager to return home. - Objective Vital Signs & Weight: Vital Signs (12 hours) Temp Pulse Pulse Pulse Resp BP BP 06/08/20 13:50 77 82 90/55 L 105/60 06/08/20 12:00 98 F 68 16 06/08/20 08:55 98.7 F 81 24 H BP Pulse Ox Pulse Ox Pulse Ox 06/08/20 13:50 100 100 06/08/20 12:00 140/83 100 06/08/20 08:55 125/87 99 Weight Weight 181 lb 8 oz Result Diagrams: 06/08/20 04:46 06/08/20 04:46 Hospitalist ROS - Medication Medications: Active Medications Generic Name Dose Route Start Last Admin Trade Name Freq PRN Reason Stop Dose Admin Aspirin 81 mg 06/07/20 09:00 06/08/20 08:53 Aspirin 81 Mg Enteric Coated Tablet PO 81 mg DAILY AMERICA Administration Atorvastatin Calcium 40 mg 06/06/20 21:00 06/08/20 00:59 Atorvastatin Calcium 40 Mg Tab PO 40 mg HS AMERICA Administration Enoxaparin Sodium 30 mg 06/07/20 09:00 06/08/20 08:53 Enoxaparin Sodium 30 Mg/0.3 Ml Syringe SC 30 mg 0900 AMERICA Administration Ceftriaxone Sodium 1 gm/ 100 mls @ 200 mls/hr 06/07/20 02:00 06/08/20 02:54 Sodium Chloride IVPB 100 mls Q24HR AMERICA Administration Dexamethasone 6 mg/ Sodium 50.6 mls @ 100 mls/hr 06/08/20 09:00 06/08/20 08:53 Chloride IVPB 50.6 mls DAILY AMERICA Administration Sodium Chloride 10 ml 06/07/20 21:00 06/08/20 08:54 Flush - Normal Saline 10 Ml Syringe IVF 10 ml Q12HR AMERICA Administration - Exam General Appearance: awake alert Eye: PERRL, anicteric sclera ENT: normocephalic atraumatic, no oropharyngeal lesions Neck: supple, symmetric, no JVD, no thyromegaly Heart: RRR, no murmur, no gallops Respiratory: CTAB, rales (rales at the basis) Hosp A/P (1) COVID-19 Code(s): U07.1 - COVID-19 Status: Acute (2) Elevated troponin Code(s): R77.8 - OTHER SPECIFIED ABNORMALITIES OF PLASMA PROTEINS Status: Acute (3) Dementia Code(s): F03.90 - UNSPECIFIED DEMENTIA WITHOUT BEHAVIORAL DISTURBANCE Status: Acute (4) Physical deconditioning Code(s): R53.81 - OTHER MALAISE Status: Acute (5) UTI (urinary tract infection) Status: Acute - Plan please see my discharge note; as RN was preparing for discharge, patient became hypotensive and desaturated. I will start him on IV Decadron. IVF bolus was given with good response. I spoke with Myrtle again , we will keep him in the hospital for now and reassess tomorrow. I will maintain him on IVF. will stop his BP meds. He is DNR as per his family and an out of the hospital DNR. plan for today 06/08 appears better today. PT to evaluate him. spoke with daughter and tomorrow will reconvene in regards of appropriate p lacement.
[2020-06-09] MEDS: cefTRIAXone\\ROCEPHIN 1 GM in Sodium Chloride 0.9% 100 ML IVPB SCH (01:44)
[2020-06-09 05:14] LABS: #Lymphocytes 1.5 thou/uL (1.20-3.40); #Monocytes 0.7 thou/uL (0.11-0.59); #Neutrophils 3.9 thou/uL (1.40-6.50); %Basophils 0.5 % (0.0-1.0); %Eosinophils 0.2 % (0.0-10.0); %Lymphocytes 24.8 % (21.0-51.0); %Monocytes 11.1 % (0.0-10.0); %Neutrophils 63.5 % (42.0-75.0); Hemoglobin 13.8 g/dL (14.0-18.0); Mean Corpuscular HGB CONC 32.5 g/dL (32.0-36.0); Mean Corpuscular Hemoglobin 32.1 pg (27.0-31.0); Mean Corpuscular Volume 98.7 fL (78.0-98.0); Mean Platelet Volume 10.7 fL (7.4-10.4); Platelet Count 106 thou/uL (130-400); RBC Distribution Width 13.3 % (11.5-14.5); Red Blood Cell (RBC) Count 4.31 mill/uL (4.70-6.10); White Blood Cell (WBC) Count 6.1 thou/uL (4.8-10.8)
[2020-06-09 05:35] LABS: Anion Gap 13 mmol/L (10-20); BUN (Urea Nitrogen) 20 mg/dL (8.4-25.7); CRP (Inflammatory) Less than 0.50 mg/dL (= or < 0.5); Calc. Creatinine Clearance 78 mL/min (70-130); Calcium 8.3 mg/dL (7.8-10.44); Carbon Dioxide 24 mmol/L (23-31); Chloride 106 mmol/L (98-107); Glucose 93 mg/dL (83-110); Sodium 139 mmol/L (136-145)
[2020-06-09] MEDS: Aspirin 81 mg Enteric Coated Tablet PO SCH (08:55)
[2020-06-09] MEDS: Enoxaparin Sodium 30 MG/0.3 ML SYRINGE SC SCH (08:55)
[2020-06-09] MEDS: Dexamethasone 6 MG in Sodium Chloride 0.9% 50 ML IVPB SCH (08:56)
--- NOTE | 2020-06-09 17:21 | PDOC.HOSPP ---
- Subjective Encounter Date: 06/09/20 Subjective: He has no complaints. - Objective Vital Signs & Weight: Vital Signs (12 hours) Temp Pulse Resp BP Pulse Ox 06/09/20 16:00 97.6 F 61 24 H 117/68 100 06/09/20 10:55 97.8 F 72 20 113/67 97 06/09/20 08:56 98 06/09/20 07:55 97.4 F L 80 28 H 137/74 97 Weight Weight 181 lb 8 oz I&O: 06/08/20 06/09/20 06/10/20 06:59 06:59 06:59 Intake Total 750 Balance 750 Result Diagrams: 06/09/20 04:24 06/09/20 04:25 Hospitalist ROS - Medication Medications: Active Medications Generic Name Dose Route Start Last Admin Trade Name Freq PRN Reason Stop Dose Admin Acetaminophen 650 mg 06/06/20 19:49 06/09/20 08:54 Acetaminophen 325 Mg Tab PO 650 mg Q4H PRN Administration Headache/Fever/Mild Pain (1-3) Aspirin 81 mg 06/07/20 09:00 06/09/20 08:55 Aspirin 81 Mg Enteric Coated Tablet PO 81 mg DAILY AMERICA Administration Atorvastatin Calcium 40 mg 06/06/20 21:00 06/08/20 20:14 Atorvastatin Calcium 40 Mg Tab PO 40 mg HS AMERICA Administration Enoxaparin Sodium 30 mg 06/07/20 09:00 06/09/20 08:55 Enoxaparin Sodium 30 Mg/0.3 Ml Syringe SC 30 mg 0900 AMERICA Administration Ceftriaxone Sodium 1 gm/ 100 mls @ 200 mls/hr 06/07/20 02:00 06/09/20 01:44 Sodium Chloride IVPB 100 mls Q24HR AMERICA Administration Dexamethasone 6 mg/ Sodium 50.6 mls @ 100 mls/hr 06/08/20 09:00 06/09/20 08:56 Chloride IVPB 50.6 mls DAILY AMERICA Administration Sodium Chloride 10 ml 06/07/20 21:00 06/09/20 08:56 Flush - Normal Saline 10 Ml Syringe IVF 10 ml Q12HR AMERICA Administration - Exam General Appearance: awake alert Eye: PERRL ENT: normocephalic atraumatic Neck: supple, symmetric Heart: RRR, no murmur Respiratory: CTAB, no wheezes Gastrointestinal: soft, non-tender Extremities: no cyanosis Hosp A/P (1) COVID-19 Code(s): U07.1 - COVID-19 Status: Acute (2) Elevated troponin Code(s): R77.8 - OTHER SPECIFIED ABNORMALITIES OF PLASMA PROTEINS Status: Acute (3) Dementia Code(s): F03.90 - UNSPECIFIED DEMENTIA WITHOUT BEHAVIORAL DISTURBANCE Status: Acute (4) Physical deconditioning Code(s): R53.81 - OTHER MALAISE Status: Acute (5) UTI (urinary tract infection) Status: Acute - Plan please see my discharge note; as RN was preparing for discharge, patient became hypotensive and desaturated. I will start him on IV Decadron. IVF bolus was given with good response. I spoke with Myrtle again , we will keep him in the hospital for now and reassess tomorrow. I will maintain him on IVF. will stop his BP meds. He is DNR as per his family and an out of the hospital DNR. plan for today 06/08 appears better today. PT to evaluate him. spoke with daughter and tomorrow will reconvene in regards of appropriate placem ent. Plan for today 06/19 appear well. PT evaluated him and daughter was interested in home health, a referral has been, he can be discharged when this is arranged.
[2020-06-09] MEDS: Atorvastatin Calcium 40 MG TAB PO SCH (20:27)
[2020-06-10] MEDS: cefTRIAXone\\ROCEPHIN 1 GM in Sodium Chloride 0.9% 100 ML IVPB SCH (01:36)
[2020-06-10] MEDS: Enoxaparin Sodium 30 MG/0.3 ML SYRINGE SC SCH (08:23)
[2020-06-10] MEDS: Aspirin 81 mg Enteric Coated Tablet PO SCH (08:23)
[2020-06-10] MEDS: Dexamethasone 6 MG in Sodium Chloride 0.9% 50 ML IVPB SCH (08:23)
[2020-06-10 16:50] VITALS: BP 134/80; TEMP 97.9
--- NOTE | 2020-06-10 18:55 | DIS ---
DATE OF ADMISSION: 06/06/2020 DATE OF DISCHARGE: 06/10/2020 DISCHARGE DISPOSITION: To home. PRIMARY DISCHARGE DIAGNOSES: COVID-19 virus infection; frequent falls; urinary tract infection; dehydration, resolved with fluid resuscitation; physical deconditioning; dementia. PROCEDURES DONE DURING HOSPITALIZATION: CT brain without contrast showed no acute process. Chest x-ray done showed no acute cardiopulmonary process. Right knee 4-view x-ray done showed no acute findings. Urine culture grew Aerococcus urinae. Blood cultures x2, no growth. H and H 13 and 42, platelet count 106, white count of 6.1, MCV 98. D-dimer 1.8. Ferritin 273. CRP 0.53. BUN 20, creatinine 0.8. COVID-19 PCR was detected on 06/06/2020. Influenza A and B PCR were negative. DISCHARGE MEDICATIONS: 1. Isosorbide mononitrate extended release 60 mg daily. 2. Lopressor 12.5 mg twice daily. 3. Aspirin 81 mg p.o. daily. 4. Keflex 500 mg p.o. twice daily for 5 days for urinary tract infection. 5. Atorvastatin 40 mg p.o. q.h.s. ALLERGIES: NO KNOWN DRUG ALLERGIES. DISCHARGE PLAN: The patient is to follow up with his primary care physician, , in 1 week. BRIEF COURSE DURING HOSPITALIZATION: The patient initially got admitted on the 06 of June with history of recurrent falls at home. He was also dehydrated on clinical exam. The patient was positive for COVID-19 virus, but he remained on room air with no infiltrates seen on chest x-ray. He has had a gentle hydration done and had physical therapy evaluation as well. He was placed on antibiotics for his UTI. Mr. Rojas White has slowly turned around with these measures. His hypotension on the and has resolved. His medications were optimized. [facility] was arranged with physical therapy. The patient has adequate help at home and will be shortly discharged home. He is otherwise remained hemodynamically stable. The patient is slowly tolerating oral solid diet with increasing quantities. Please note, I have seen and examined the patient on the day of discharge. Job ID: [id number]
--- NOTE | 2020-06-13 00:25 | PQF ---
CLINICAL DOCUMENTATION CLARIFICATION FORM: Dear : Bart Farrar Date / Time: 06/13/2024 Please exercise your independent, professional judgment in responding to the clarification form. Clinical indicators are provided on the bottom of this form for your review Please check appropriate box(es): [ ] Sepsis due to Covid infection [ ] Severe sepsis due to Covid infection with Metabolic Encephlaopathy [ ] Localized infection without sepsis [ ] Other diagnosis [ x] Unable to determine Physician Signature: Date/Time: For continuity of documentation, please document condition throughout progress notes and discharge summary. Thank You. To be completed by CDI/Coding staff for physician review: Present Clinical Indicators - Signs / Symptoms / Labs Results and Location in Medical Record [x] Lactic Acid 2.8, WBC 8.0, Plt count 130, Netrouphils 83.8 Laboratory 06/06 [x] SARS Cov Rap RNA: Detected Serology 06/06 [x] Blood Culture: No growth in 5 days Microbiology 06/06 [x] BP 135/94, Pulse 112, Resp 25, Temp 98.8 Vital signs 06/06 [x] SIRS scoring: Yes, pt did meet criteria ED notes p4 06/06 [x] Covid 19 H&P p1 06/06 Dr Amanda [x] Confused H&P p1 06/06 Dr Amanda [x] Mild Metabolic Encephalopathy H&P p4 05/31 Dr Harmon Present Risk Factors Results and Location in Medical Record [x] 85 year-old Male H&P p1 06/06 Dr Amanda [x] Covid 19 H&P p1 06/06 Dr Amanda [x] Hx of prostate cancer H&P p1 06/06 Dr Amanda [x] UTI H&P p1 06/06 Dr Amanda Present Treatments Results and Location in Medical Record [x] IVF NS 1L AUG 01 [x] IV Vancomycin 1 gm 200 mg AUG 01 [x] IV Ceftrizxone 1 gm AUG 01 [x] Sepsis criteria ED notes p1 06/06 [x] Closely monitor respiratory status H&P p4 05/31 Dr Harmon [x] Isolation Order 06/06 CDS/Therapeutic Activities Services Worker Signature: Erin Monahan Phone #: [phone] Date/Time: 06/13/205 This is a permanent part of the Medical Record [facility]
== END 2020-06-10 16:38 | disposition home health service (06) | DRG 177 ==
LOC: ERS 11:27 → 2SW 15:01 → ERHOLD 15:01 → 2SW 06-08 02:24
PROVIDERS: ADMIT Internal Medicine; ATTEND Internal Medicine
PROC: 8E0ZXY6 Isolation (ICD-10-PCS; principal; 2020-06-06)
DX: U07.1 COVID-19 (principal); I21.A1 Myocardial infarction type 2; G93.41 Metabolic encephalopathy; Z66 Do not resuscitate; G91.2 (Idiopathic) normal pressure hydrocephalus; N39.0 Urinary tract infection, site not specified; F03.90 Unspecified dementia, unspecified severity, without behavioral disturbance, psychotic disturbance, mood disturbance, and anxiety; E78.5 Hyperlipidemia, unspecified; Z96.653 Presence of artificial knee joint, bilateral; R29.6 Repeated falls; I25.10 Atherosclerotic heart disease of native coronary artery without angina pectoris; E86.0 Dehydration; I95.9 Hypotension, unspecified; Z90.79 Acquired absence of other genital organ(s); Z91.19 Patient's noncompliance with other medical treatment and regimen; Z85.46 Personal history of malignant neoplasm of prostate; Z87.891 Personal history of nicotine dependence; Z82.49 Family history of ischemic heart disease and other diseases of the circulatory system; Z79.899 Other long term (current) drug therapy; Z79.82 Long term (current) use of aspirin
CPT/HCPCS: 0240U; 36415; 36416; 51701; 70450; 71045; 80048; 80053; 81003; 81015; 82553; 82728; 83605; 84484; 85025; 85379; 86140; 87040; 87086; 93005; 94760; 96365; J0692; J0696; J1100; J1650; J3370; J3490

== ENCOUNTER 2020-06-11 10:29 | Inpatient (IN) | payer MEDICARE ==
[~2020-06-11 10:29] MED LIST: Iopamidol 370 76% 100 ML VIAL ONE
--- NOTE | 2020-06-11 10:42 | CT ---
Exam: Head CT without contrast HISTORY: Sudden facial droop. Altered mental status. Last seen normal at 10:00 AM. Left extremity wea kness COMPARISON: 06/06/2020 FINDINGS: Hemorrhage: No intraparenchymal hemorrhage or extra-axial hematoma. Brain parenchyma: Cortical townsend-white matter differentiation is preserved. No mass effect or midline shift. Basilar cisterns are patent.Stable chronic small vessel ischemic changes of the white matter. Stable hypoattenuation in the right subinsular white matter. Ventricular system: Stable configuration the ventricular system. There is a right-sided ventriculoper itoneal shunt catheter with the distal tip in the posterior body of the right lateral ventricle. Calvarium: Intact. Sinuses and mastoid air cells: Minimal right maxillary sinus disease IMPRESSION: 1. No acute intracranial process. 2. Results study conveyed to Dr. Nash 06/11/2020 at 10:39 AM Code CR
[2020-06-11 11:00] LABS: Hemoglobin 14.1 g/dL (14.0-18.0); Mean Corpuscular HGB CONC 33.5 g/dL (32.0-36.0); Mean Corpuscular Hemoglobin 32.3 pg (27.0-31.0); Mean Corpuscular Volume 96.5 fL (78.0-98.0); Mean Platelet Volume 10.6 fL (7.4-10.4); Platelet Count 102 thou/uL (130-400); Red Blood Cell (RBC) Count 4.35 mill/uL (4.70-6.10); White Blood Cell (WBC) Count 6.5 thou/uL (4.8-10.8)
[2020-06-11 11:05] LABS: Prothrombin Time 13.6 sec (12.0-14.7)
--- NOTE | 2020-06-11 11:15 | CT ---
CT ANGIOGRAM NECK WITH CONTRAST CT ANGIOGRAM BRAIN WITH CONTRAST: DATE: 06/11/2020 10:44 AM HISTORY: 85-year-old male with acute stroke symptoms: Altered mental status and facial droop. At 11:11 AM 06/11/2020 Dr. Mckenzie gave verbal report to Dr. Bayron Nash of the ER TECHNIQUE: After IV contrast injection, arterial bolus chasing technique scan performed from pulmonic trunk to v ertex of head. Coronal and sagittal 3-D MIP reconstructions. FINDINGS: Bilateral MCAs: Bilateral M1 segments are patent, with no thrombus, occlusion, or high-grade stenosis . Proximal portions of bilateral M2 segments are patent. Bilateral carotid siphons: Bilaterally patent with no high-grade stenosis. Bilateral intracranial vertebral: Patent Basilar: Patent with no high-grade stenosis. Bilateral SAND MILL OPERATOR: Bilateral P1 and P2 segments are patent Bilateral superior cerebellar: Proximal portions patent Right internal carotid: Mild calcified plaque at origin. No stenosis. Left internal carotid: Mild calcified plaque at origin. No stenosis. Right common carotid: Soft plaque at distal most RCCA just proximal to bifurcation, causing mild sten osis. No high-grade stenosis . Left common carotid: Calcified plaque at origin without significant stenosis. 1 cm distal to origin, soft plaque causes mild, approximately 20-50% stenosis. Distally, just proximal to bifurcation, calcified mild plaque causes mild stenosis. Brachiocephalic: Mild calcified plaque. No high-grade stenosis. Right subclavian: No stenosis. Left subclavian: Mild scattered plaque throughout. No stenosis. Right vertebral: Mild stenosis at origin. No high-grade stenosis. Left vertebral: Heavily calcified plaque at tortuous origin causing severe stenosis.: IMPRESSION: 1) no thrombosis, high-grade stenosis, or occlusion, of M1 segments of middle cerebral arteries. 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 3) scattered atherosclerotic plaque.
--- NOTE | 2020-06-11 11:18 | RAD ---
RADIOGRAPH CHEST 1 VIEW: DATE: 06/11/2020 10:57 AM HISTORY: 85-year-old male with acute stroke. Concern for aspiration. COMPARISON: 1. 11/20/2020 FINDINGS: Hypoinflated lungs. Sternotomy wires. Right SOC[employer] INSURANCE ADVISER shunt catheter. New finding of small mild patchy focus of mildly increased attenuation in the retrocardiac portion of base of left lower lobe. 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 There is no evidence of pulmonary edema, or pneumothorax. The lateral costophrenic angles are not effaced. IMPRESSION: 1) nonspecific small patchy airspace density at left lower lobe. 2) the rest of the visualized lung walls are clear. 3) ectasia of thoracic aorta.
[2020-06-11 11:22] LABS: ALT (SGPT) 26 U/L (8-55); AST (SGOT) 36 U/L (5-34); Albumin 3.8 g/dL (3.4-4.8); Alkaline Phosphatase 65 U/L (40-110); Anion Gap 14 mmol/L (10-20); BUN (Urea Nitrogen) 18 mg/dL (8.4-25.7); CK (CPK) 242 U/L (30-200); Calc. Creatinine Clearance 0 mL/min (70-130); Calcium 7.8 mg/dL (7.8-10.44); Carbon Dioxide 24 mmol/L (23-31); Chloride 105 mmol/L (98-107); Globulin 2.1 g/dL (2.4-3.5); Glucose 146 mg/dL (83-110); Potassium 3.3 mmol/L (3.5-5.1); Protein, Total 5.9 g/dL (5.8-8.1); Sodium 140 mmol/L (136-145)
[2020-06-11 11:29] LABS: #Lymphocytes 1.5 thou/uL (1.20-3.40); #Monocytes 0.5 thou/uL (0.11-0.59); #Neutrophils 4.4 thou/uL (1.40-6.50); %Basophils 0.2 % (0.0-1.0); %Eosinophils 0.5 % (0.0-10.0); %Lymphocytes 23.7 % (21.0-51.0); %Monocytes 7.7 % (0.0-10.0); Large Platelets SLIGHT; MDiff Complete? YES; Platelet Morphology Comment Appears Adequate; RBC Morphology Normal
[2020-06-11 11:42] LABS: CKMB 2.6 ng/mL (0-6.6)
[2020-06-11] MEDS ORDERED: Aspirin 300 MG Suppository ONE (11:55)
[2020-06-11 12:29] LABS: Bilirubin Negative (Negative); Blood, Urine Negative (Negative); Clarity Clear (Clear); Glucose, Urine (Dipstick) Normal (Negative); Ketone, Urine Negative (Negative); Leukocyte Negative Leu/uL (Negative); Nitrite Negative (Negative); Protein, Urine (Dipstick) 20 mg/dL (Neg-Trace); Specific Gravity, Urine 1.023 (1.002-1.036); Urobilinogen Normal mg/dL (Less than 2); pH, Urine 6.5 (5.0-9.0)
[2020-06-11] MEDS ORDERED: Labetalol HCl 100 MG/20 ML VIAL SLOW IVP PRN (12:47)
[2020-06-11] MEDS ORDERED: hydrALAZINE 20 MG/ML VIAL SLOW IVP PRN (12:47)
[2020-06-11] MEDS ORDERED: Guaifenesin DM 100-10/5 ML UDCUP PO PRN (12:52)
[2020-06-11] MEDS ORDERED: Calcium Carbonate 500 MG ChewTAB PO PRN (12:52)
[2020-06-11] MEDS ORDERED: Ondansetron PF 4 MG/2 ML Vial IVP PRN (12:52)
[2020-06-11] MEDS ORDERED: Bisacodyl 5 MG TAB PO PRN (12:52)
[2020-06-11] MEDS ORDERED: Ondansetron ODT 4 MG TAB PO PRN (12:52)
[2020-06-11] MEDS ORDERED: Senokot S 8.6-50 MG TAB PO PRN (12:52)
[2020-06-11] MEDS ORDERED: Acetaminophen 650 MG Suppository PR PRN (12:52)
[2020-06-11] MEDS ORDERED: Azithromycin 500 MG VIAL ONE (12:56)
[2020-06-11] MEDS ORDERED: Dexamethasone 10 MG/ML VIAL ONE (12:56)
[2020-06-11] MEDS ORDERED: cefTRIAXone\\ROCEPHIN 2 GM VIAL ONE (12:56)
[2020-06-11] MEDS ORDERED: Lorazepam 2 MG/ML VIAL SLOW IVP SCH (13:00)
--- NOTE | 2020-06-11 13:01 | PDOC.HHP ---
Hospitalist HPI - History of Present Illness Stroke alert History of Present Illness: PCP: Black Lucas Majority of the H&P was taken from the ER documentation due to the patient's history of dementia. The patient is an 85-year-old male with a past medical history significant for dementia, CAD/CABG, hydrocephalus with AUTO TECHNICIAN shunt (2010), and prostate cancer that presents to the emergency department via EMS for the above complaint. Apparently, the patient's caregiver witnessed the patient slumped in his chair at approximately 10:00 in the morning. She reports associated left facial droop and slurred speech. There is documentation of left sided weakness. EMS was called. Upon arrival, the patient was noted to have a left facial droop and some slurred speech however he was starting to follow commands. EMS was called. Upon arrival, his vital signs are stable. Patient was brought to the emergency department for further evaluation. The patiently was recently discharged from our hospital on 06/10/2020 with a chief complaint of frequent falls. He was found to be Covid positive on 06/06, however, did not receive any therapy for Covid because he was stable on room air. His chest x-ray had no acute process. He was found to be dehydrated and had a UTI. He was discharged home on Keflex and home health follow-up. Since discharge, there is no documentation of any new fall or trauma. Only change to his home medications was an antibiotic, Keflex. No recent surgeries. No psychiatric history. He is Covid-19 positive, however, no documentation of any fever or symptomatology. ED Course: Presented T 97.6F, BP 132/83, HR 75, RR 20, SPO2 97% room air NIH 14 EKG sinus rhythm right bundle branch block 68 bpm Troponin 0.255, CK-MB 2.6, BNP 316 Prolactin 33.36, CPK 242 WBC 6.5, LA 1.6 CT brain stable AUTO TECHNICIAN shunt CTA head and neck no acute process, chronic left vertebral artery stenosis. ER MD spoke with Yu JANE who is the patient's [id number], who declined TPA due to the patient's improvement in symptoms. Medications: Azithromycin and Rocephin IVPB Dexamethasone IVP 1 L normal saline Full dose aspirin rectally Hospitalist ROS - Review of Systems ROS unobtainable: due to mental status All other systems reviewed; all pertinent +/- noted in HPI/Subj - Medication Medications: Medication Instructions Recorded Confirmed Type Aspirin [Low Dose Aspirin EC] 81 mg PO DAILY 10/12/14 06/06/20 History Metoprolol Tartrate [Lopressor] 12.5 mg PO BID 09/09/18 06/06/20 History Atorvastatin Calcium [Lipitor] 40 mg PO HS tab 09/11/18 06/06/20 Rx Isosorbide Mononitrate [Imdur ER] 60 mg PO DAILY 06/06/20 06/06/20 History Cephalexin [Keflex] 500 mg PO Q12H #10 cap 06/07/20 Rx Allergies No Known Drug Allergies Allergy (Verified 06/06/20 16:47) 06/11/20 12:52 Resuscitation Status Routine Resuscitation Status: FULL: Full Resuscitation Co-Sign Provider: Hospitalist History - Past Medical History Source: RN notes reviewed, old records Cardiac: reports: CAD, HTN, LA, Hyperlipidemia SWEAT BAND SEPARATOR: reports: Dementia, Other (Hydrocephalus with AUTO TECHNICIAN shunt) Heme/Onc: reports: Cancer (Prostate cancer, treated with prostatectomy) - Past Surgical History Past Surgical History: reports: CABG, Total Knee Replacement (Bilateral), Other (Prostatectomy, AUTO TECHNICIAN shunt (2011)) - Family History Other Family History: Unable to obtain at bedside due to patient's history of dementia - Social History Smoking Status: Unknown if ever smoked Alcohol: reports: None Drugs: reports: none Living Situation: With Family Occupation: Does not work - Exam General Appearance: NAD. negative: ill appearing General - other findings: Somnolent, follows commands Eye: PERRL, anicteric sclera ENT: normocephalic atraumatic, dry oral mucosa Neck: supple, no lymphadenopathy Heart: RRR, no murmur, no gallops, no rubs, normal peripheral pulses Respiratory: no wheezes, no rales, no ronchi, no tachypnea Respiratory - other findings: Diminished lower lobes Gastrointestinal: soft, non-tender, non-distended, normal bowel sounds, no guarding, no rigidity Gastrointestinal - other findings: Negative Rovsing sign and Virgen sign Extremities: no cyanosis, no edema Skin: no rashes Neurological - other findings: Difficult exam d/t dementia; GCS E3, V4, M6; MAEW, RLE weaker than Left; ge Musculoskeletal: generalized weakness Psychiatric: somnolent Psychiatric - other findings: Oriented to person, Hospitalist Results - Labs Result Diagrams: 06/11/20 10:44 06/11/20 10:44 Lab results: WBC 6.5 thou/uL (4.8-10.8) 06/11/20 10:44 Hgb 14.1 g/dL (14.0-18.0) 06/11/20 10:44 Hct 42.0 % (42.0-52.0) 06/11/20 10:44 MCV 96.5 fL (78.0-98.0) 06/11/20 10:44 Plt Count 102 thou/uL (130-400) L 06/11/20 10:44 Neutrophils % 68.0 % (42.0-75.0) 06/11/20 10:44 Sodium 140 mmol/L (136-145) 06/11/20 10:44 Potassium 3.3 mmol/L (3.5-5.1) L 06/11/20 10:44 Chloride 105 mmol/L (98-107) 06/11/20 10:44 Carbon Dioxide 24 mmol/L (23-31) 06/11/20 10:44 BUN 18 mg/dL (8.4-25.7) 06/11/20 10:44 Creatinine 0.78 mg/dL (0.7-1.3) 06/11/20 10:44 Glucose 146 mg/dL (83-110) H 06/11/20 10:44 Lactic Acid 1.6 mmol/L (0.5-2.2) 06/11/20 11:29 Calcium 7.8 mg/dL (7.8-10.44) 06/11/20 10:44 Total Bilirubin 1.0 mg/dL (0.2-1.2) 06/11/20 10:44 AST 36 U/L (5-34) H 06/11/20 10:44 ALT 26 U/L (8-55) 06/11/20 10:44 Alkaline Phosphatase 65 U/L (40-110) 06/11/20 10:44 Creatine Kinase 242 U/L (30-200) H 06/11/20 10:44 CK-MB (CK-2) 2.6 ng/mL (0-6.6) 06/11/20 10:44 Troponin I 0.255 ng/mL (< 0.028) H 06/11/20 10:44 B-Natriuretic Peptide 316.0 pg/mL (0-100) H 06/11/20 10:44 Serum Total Protein 5.9 g/dL (5.8-8.1) 06/11/20 10:44 Albumin 3.8 g/dL (3.4-4.8) 06/11/20 10:44 Urine Ketones Negative mg/dL (Negative) 06/11/20 12:15 Urine Blood Negative (Negative) 06/11/20 12:15 Urine Nitrite Negative (Negative) 06/11/20 12:15 Ur Leukocyte Esterase Negative Alden/uL (Negative) 06/11/20 12:15 - EKG Interpretation EKG: Normal sinus rhythm, right bundle branch block - Radiology Interpretation Chest x-ray Status: report reviewed by me Additional Comment: No acute cardiopulmonary process CT scan - head Status: report reviewed by me Additional Comment: CT brain 1. No acute intracranial process. CTA head and neck 1. No thrombosis, high-grade stenosis, or occlusion of M1 segments of middle cerebral arteries. 2. Severe stenosis at origin of left vertebral artery. 3. Scattered atherosclerotic plaque. Hospitalist H&P A/P - Problem (1) CVA (cerebral vascular accident) Code(s): I63.9 - CEREBRAL INFARCTION, UNSPECIFIED Status: Acute (2) Facial droop Code(s): R29.810 - FACIAL WEAKNESS Status: Acute (3) Pneumonia due to COVID-19 virus Code(s): U07.1 - COVID-19; J12.82 - PNEUMONIA DUE TO CORONAVIRUS DISEASE 2019 Status: Acute (4) Elevated troponin Code(s): R77.8 - OTHER SPECIFIED ABNORMALITIES OF PLASMA PROTEINS Status: Acute (5) Hypokalemia Code(s): E87.6 - HYPOKALEMIA Status: Acute (6) CAD (coronary artery disease) Code(s): I25.10 - ATHSCL HEART DISEASE OF [place] CORONARY ARTERY W/O ANG PCTRS Status: Acute (7) Dementia Code(s): F03.90 - UNSPECIFIED DEMENTIA WITHOUT BEHAVIORAL DISTURBANCE Status: Acute (8) Prostate cancer Code(s): C61 - MALIGNANT NEOPLASM OF PROSTATE Status: Acute - Plan Plan: 85/M with H CAD, hydrocephalus and dementia presents for left facial droop and slurred speech. Admit to stroke unit, inpatient status. Expected length of stay greater than 2 midnights. #CVA Witnessed "slumping in chair", left facial droop, slurred speech at 10 AM. NIH 14, CT brain/CTA head and neck no acute process. Not TPA candidate due to rapid improvement of symptoms. Order MRI, echocardiogram. Consult neurology and stroke team. Permissive hypertension. Neurochecks. Check TSH, FLP, mag, UA/UDS, serum DS, folate/B12. Prolactin elevated 33.36, CPK 242. Order EEG and place on seizure precautions. Ativan as needed for seizure activity. #Facial droop Documented left-sided facial droop. Upon assessment, difficult to appreciate. Patient was somnolent upon exam, follows commands. Plan as per above. #Pneumonia due to COVID-19 virus Diagnosed 06/06/2020. Stable respiratory status, no treatment. CXR no acute process. Received azithromycin, Rocephin and dexamethasone in ED. Hold antibiotics and steroids for now, patient is not hypoxic. Isolation precautions. Continue to monitor respiratory status. #Elevated troponin Presented troponin I 0.255. Received aspirin in ED. Trend troponins. #Hypokalemia Presented K of 3.3. Check mag level Repeat BMP in a.m. #CAD History of CABG. Takes metoprolol, Lasix, lisinopril, isosorbide mononitrate at home Takes baby aspirin atorvastatin at home. Continue full dose aspirin and high intensity statin per problem #1. Restart other home medications as appropriate. #Dementia Chronic. No home medications documented for this condition. #Prostate cancer Treated surgically by prostatectomy. SCDs for DVT prophylaxis. No pharmacological DVT prophylaxis. No GI prophylaxis. CODE STATUS is full code. LUCINDA is his [id number] Ruth. Discussed this case with Dr. Herzog, attending physician.
[2020-06-11 13:31] LABS: Acetaminophen Less than 6.0 mcg/mL (10.0-30.0); Alcohol Less than 10 mg/dL (Less than 10); Salicylate Less than 8.0 mg/dL (15.0-30.0)
[2020-06-11 13:48] LABS: Thyroid Stimulating Hormone 3.1877 uIU/mL (0.35-4.94)
[2020-06-11 14:43] LABS: Troponin I 0.198 ng/mL (< 0.028)
[2020-06-11 16:14] LABS: Amphetamine Not Detected (NotDetected); Barbiturates Screen Not Detected (NotDetected); Benzodiazepine Screen Not Detected (NotDetected); Cocaine Metabolite Screen Not Detected (NotDetected); Medtox Control Line Valid? VALID (VALID); Medtox Reader # READER 4; Methadone Not Detected (NotDetected); Methamphetamine Not Detected (NotDetected); Opiate Screen Not Detected (NotDetected); Oxycodone Screen Not Detected (NotDetected); Phencyclidine (PCP) Not Detected (NotDetected); THC/Cannabinoid Screen Not Detected (NotDetected); Tricyclic Screen Not Detected (NotDetected)
[2020-06-11 18:10] LABS: Troponin I 0.176 ng/mL (< 0.028)
[2020-06-11] MEDS ORDERED: Atorvastatin Calcium 40 MG TAB PO SCH (21:00)
[2020-06-12 05:26] LABS: #Lymphocytes 0.7 thou/uL (1.20-3.40); #Monocytes 0.6 thou/uL (0.11-0.59); #Neutrophils 5.9 thou/uL (1.40-6.50); %Basophils 0.3 % (0.0-1.0); %Eosinophils 0.1 % (0.0-10.0); %Lymphocytes 9.9 % (21.0-51.0); %Monocytes 8.9 % (0.0-10.0); %Neutrophils 80.9 % (42.0-75.0); Hemoglobin 13.9 g/dL (14.0-18.0); Mean Corpuscular HGB CONC 33.4 g/dL (32.0-36.0); Mean Corpuscular Hemoglobin 32.3 pg (27.0-31.0); Mean Corpuscular Volume 96.8 fL (78.0-98.0); Mean Platelet Volume 10.9 fL (7.4-10.4); Platelet Count 99 thou/uL (130-400); RBC Distribution Width 13.1 % (11.5-14.5); White Blood Cell (WBC) Count 7.3 thou/uL (4.8-10.8)
[2020-06-12 05:43] LABS: Anion Gap 14 mmol/L (10-20); BUN (Urea Nitrogen) 18 mg/dL (8.4-25.7); Calc. Creatinine Clearance 90 mL/min (70-130); Calcium 8.6 mg/dL (7.8-10.44); Carbon Dioxide 24 mmol/L (23-31); Cardiac Risk 2.6 (Less than 4.5); Chloride 107 mmol/L (98-107); Cholesterol 143 mg/dl (< 200 Desired); Glucose 104 mg/dL (83-110); HDL Cholesterol 56 mg/dL (>60 Neg Risk); LDL Cholesterol, Calculated 71 mg/dL; Sodium 141 mmol/L (136-145); Triglycerides 80 mg/dL (Less than 150)
[2020-06-12] MEDS ORDERED: Aspirin 325 mg Enteric Coated Tablet PO SCH (09:00)
--- NOTE | 2020-06-12 10:14 | CON ---
DATE OF CONSULTATION: 06/12/2020 CONSULTING PHYSICIAN: Hospitalist Services. IMPRESSION: 1. Possible transient ischemic attack. 2. Dementia. 3. Coronary artery disease. 4. Previous PAIN MANAGEMENT SPECIALIST shunt. 5. Prostate cancer. PLAN: 1. Continue aspirin and a statin. 2. Cancel MRI of the brain. 3. Echocardiogram. 4. The patient can be discharged at your discretion. HISTORY OF PRESENT ILLNESS: Mr. Xie is an 85-year-old man, who was recently diagnosed with COVID. He was discharged home. He apparently developed facial droop and was brought back. He had a CT of the brain done, which showed cerebral atrophy and PAIN MANAGEMENT SPECIALIST shunt on the right. There were no acute changes noted. CT angiogram showed some left vertebral artery stenosis. He is without any particular complaints this morning. There was no one available to give further description of what that was seen earlier other than the nurse. PAST MEDICAL HISTORY: As listed above. ALLERGIES: NONE. SOCIAL HISTORY: No tobacco or alcohol. FAMILY HISTORY: Noncontributory. REVIEW OF SYSTEMS: Ten-system review systems is only positive for chest pain. PHYSICAL EXAMINATION: GENERAL: He is a somewhat disheveled, elderly gentleman, lying in bed, in no acute distress. VITAL SIGNS: Have been stable. He is afebrile. HEENT: Pupils are equal. Mucous membranes are dry. Cranium, normocephalic and atraumatic. NECK: Supple. No lymphadenopathy. ABDOMEN: Soft and nontender. EXTREMITIES: No cyanosis or edema. SKIN: Clear. NEUROLOGIC: He was awake and cooperative. He follow commands reasonably well. His voice was weak but fluent. I did not appreciate any facial droop. He had equal hostess strength. He had equal antigravity strength in the lower extremities. Sensation was intact bilaterally. Plantar responses were downgoing bilaterally. LABORATORY DATA: EKG shows normal sinus rhythm. Laboratory studies were unremarkable including a prolactin of 26. SUMMARY: Elderly man who may have had a mild stroke or transient ischemic attack resulting in some transient facial droop. His workup thus far is only notable for his vertebral artery stenosis which is nonsurgical. I agree with continuing aspirin and a statin. He otherwise appears stable and can be discharged to your discretion. Job ID: [id number]
--- NOTE | 2020-06-12 17:35 | PDOC.HOSPP ---
- Subjective Encounter Date: 06/12/20 Encounter Time: 17:25 Subjective: f/u for AMS and ? TIA with negative CT brain. Received ASA/Lipitor with resolution of initial facial droop. Recent dx of COVID-19 but no respiratory complaints/hypoxia or compromise. - Objective Vital Signs & Weight: Vital Signs (12 hours) Temp Pulse Resp BP Pulse Ox 06/12/20 11:04 97.4 F L 83 27 H 156/70 H 94 L 06/12/20 08:45 98.7 F 84 25 H 136/79 93 L Weight Weight 181 lb 1.6 oz Result Diagrams: 06/12/20 05:00 06/12/20 05:00 Additional Labs: Laboratory Tests 09/09/18 06/11/20 06/11/20 09:45 10:44 10:44 Potassium 3.3 L Lactic Acid Magnesium B-Natriuretic Peptide 139.1 H 316.0 H Vitamin B12 Folate TSH 3rd Generation Prolactin 06/11/20 06/11/20 06/11/20 10:44 11:29 11:29 Potassium Lactic Acid 1.6 Magnesium 1.9 B-Natriuretic Peptide Vitamin B12 Folate TSH 3rd Generation Prolactin 33.36 H 06/11/20 06/11/20 11:29 13:14 Potassium Lactic Acid Magnesium B-Natriuretic Peptide Vitamin B12 239 Folate 5.80 L TSH 3rd Generation 3.1877 Prolactin Radiology Reviewed by me: Yes (CT brain - no acute process, DISHTANK OPERATOR shunt in position) EKG Reviewed by me: Yes (Tele - SR) Hospitalist ROS - Medication Medications: Active Medications Generic Name Dose Route Start Last Admin Trade Name Freq PRN Reason Stop Dose Admin Aspirin 325 mg 06/12/20 09:00 06/12/20 10:39 Aspirin 325 Mg Enteric Coated Tablet PO 325 mg DAILY AMERICA Administration Atorvastatin Calcium 40 mg 06/11/20 21:00 06/11/20 22:15 Atorvastatin Calcium 40 Mg Tab PO Not Given HS AMERICA - Exam General Appearance: NAD, ill appearing Eye: PERRL, anicteric sclera ENT: normocephalic atraumatic, no oropharyngeal lesions Neck: supple, symmetric, no JVD, no thyromegaly, no lymphadenopathy Heart: RRR, no gallops, no rubs, normal peripheral pulses, murmur present, II/IV Heart - other findings: S1, S2 Respiratory: no wheezes, no tachypnea Respiratory - other findings: few scattered rhonchi o/w clear Gastrointestinal: soft, non-tender, non-distended, normal bowel sounds, no palpable masses Extremities: no cyanosis, no clubbing, no edema Skin: normal turgor Neurological: cranial nerve grossly intact, no new deficit Musculoskeletal: generalized weakness Psychiatric: oriented to person, somnolent Hosp A/P (1) TIA (transient ischemic attack) Code(s): G45.9 - TRANSIENT CEREBRAL ISCHEMIC ATTACK, UNSPECIFIED Status: Acute Plan: Suspected, no CT imaging evidence of acute process, continue ASA/Lipitor (2) COVID-19 Code(s): U07.1 - COVID-19 Status: Acute Plan: + COVID but no respiratory compromise or hypoxia, continue supportive mgmt, isolation protocol (3) Dementia Code(s): F03.90 - UNSPECIFIED DEMENTIA WITHOUT BEHAVIORAL DISTURBANCE Status: Chronic Qualifiers: Dementia type: Alzheimer's Plan: Appears end-stage, supportive mgmt, placement options for memory care unit (4) Hypokalemia Code(s): E87.6 - HYPOKALEMIA Status: Acute Plan: Improved, continue serial monitoring (5) Weakness generalized Code(s): R53.1 - WEAKNESS Status: Acute Plan: PT/OT for functional assessment, likely will need supervised care on d/c (6) DISHTANK OPERATOR (ventriculoperitoneal) shunt status Status: Chronic Plan: Appropriately positioned DISHTANK OPERATOR shunt - Plan PT/OT, social services specialist, DVT proph w/SCDs Stable currently Continue routine supportive mgmt Continue ASA/Lipitor PT/OT for functional assessment CM for SNF/placement options Resume home BP meds Start Folate 1mg po daily
[2020-06-12] MEDS ORDERED: FLU VACC QS2020-21(65YR UP)/PF 240 MCG/0.7 ML SYRINGE IM ONE (21:00)
[2020-06-12] MEDS: Atorvastatin Calcium 40 MG TAB PO SCH (21:50)
[2020-06-12] MEDS: Cephalexin 250 MG CAP PO SCH (21:50)
[2020-06-12] MEDS: Metoprolol Tartrate 25 MG TAB PO SCH (21:50)
[2020-06-12] MEDS: Acetaminophen 325 MG TAB PO PRN (22:25)
[2020-06-13] MEDS: Folic Acid 1 MG TAB PO SCH (09:23)
[2020-06-13] MEDS: Metoprolol Tartrate 25 MG TAB PO SCH ×2 (09:23→22:29)
[2020-06-13] MEDS: Aspirin 81 mg Enteric Coated Tablet PO SCH (09:23)
[2020-06-13] MEDS: Cephalexin 250 MG CAP PO SCH ×2 (09:33→22:28)
--- NOTE | 2020-06-13 12:19 | PDOC.HOSPP ---
- Subjective Encounter Date: 06/13/20 Encounter Time: 12:10 Subjective: f/u for ?TIA with negative CT imaging. COVID-19 + but no respiratory compromise or O2 requirement. - Objective Vital Signs & Weight: Vital Signs (12 hours) Temp Pulse Resp BP Pulse Ox 06/13/20 12:00 98.8 F 83 20 100/59 L 96 06/13/20 07:59 99.2 F 87 24 H 129/83 94 L 06/13/20 03:10 97.6 F 74 18 120/74 95 Weight Weight 181 lb 1.6 oz I&O: 06/12/20 06/13/20 06/14/20 06:59 06:59 06:59 Intake Total 480 Balance 480 Result Diagrams: 06/12/20 05:00 06/12/20 05:00 Additional Labs: Laboratory Tests 09/09/18 06/11/20 06/11/20 09:45 10:44 10:44 Potassium 3.3 L Lactic Acid Magnesium B-Natriuretic Peptide 139.1 H 316.0 H Vitamin B12 Folate TSH 3rd Generation Prolactin 06/11/20 06/11/20 06/11/20 10:44 11:29 11:29 Potassium Lactic Acid 1.6 Magnesium 1.9 B-Natriuretic Peptide Vitamin B12 Folate TSH 3rd Generation Prolactin 33.36 H 06/11/20 06/11/20 11:29 13:14 Potassium Lactic Acid Magnesium B-Natriuretic Peptide Vitamin B12 239 Folate 5.80 L TSH 3rd Generation 3.1877 Prolactin EKG Reviewed by me: Yes (Tele - SR) Hospitalist ROS - Medication Medications: Active Medications Generic Name Dose Route Start Last Admin Trade Name Danielq PRN Reason Stop Dose Admin Acetaminophen 650 mg 06/11/20 12:52 06/12/20 22:25 Acetaminophen 325 Mg Tab PO 650 mg Q4H PRN Administration Headache/Fever/Mild Pain (1-3) Aspirin 81 mg 06/13/20 09:00 06/13/20 09:23 Aspirin 81 Mg Enteric Coated Tablet PO 81 mg DAILY AMERICA Administration Atorvastatin Calcium 40 mg 06/12/20 21:00 06/12/20 21:50 Atorvastatin Calcium 40 Mg Tab PO 40 mg HS AMERICA Administration Cephalexin 500 mg 06/12/20 21:00 06/13/20 09:33 Cephalexin 250 Mg Cap PO 500 mg BID AMERICA Administration Folic Acid 1 mg 06/13/20 09:00 06/13/20 09:23 Folic Acid 1 Mg Tab PO 1 mg DAILY [place] Administration Isosorbide Mononitrate 60 mg 06/13/20 09:00 06/13/20 09:23 Isosorbide Mononitrate Er 60 Mg Tab PO 60 mg DAILY [place] Administration Metoprolol Tartrate 12.5 mg 06/12/20 21:00 06/13/20 09:23 Metoprolol Tartrate 25 Mg Tab PO 12.5 mg BID AMERICA Administration Sodium Chloride 10 ml 06/11/20 12:47 06/13/20 09:23 Flush - Normal Saline 10 Ml Syringe IVF 10 ml PRN PRN Administration Saline Flush - Exam General Appearance: NAD, awake alert Eye: PERRL, anicteric sclera ENT: normocephalic atraumatic, no oropharyngeal lesions Neck: supple, symmetric, no JVD, no thyromegaly, no lymphadenopathy Heart: RRR, no gallops, no rubs, normal peripheral pulses, murmur present Respiratory: CTAB, no wheezes, no rales, no ronchi, no tachypnea Gastrointestinal: soft, non-tender, non-distended, normal bowel sounds, no palpable masses Extremities: no cyanosis, no clubbing, no edema Skin: normal turgor Neurological: cranial nerve grossly intact, no new deficit Musculoskeletal: normal tone, generalized weakness Psychiatric: oriented to person, flat affect, somnolent Hosp A/P (1) TIA (transient ischemic attack) Code(s): G45.9 - TRANSIENT CEREBRAL ISCHEMIC ATTACK, UNSPECIFIED Status: Acute Plan: Suspected now resolved, continue ASA/Lipitor (2) COVID-19 Code(s): U07.1 - COVID-19 Status: Acute Plan: No respiratory compromise or O2 requirement, supportive mgmt (3) Dementia Code(s): F03.90 - UNSPECIFIED DEMENTIA WITHOUT BEHAVIORAL DISTURBANCE Status: Chronic Qualifiers: Dementia type: Alzheimer's Plan: Supportive mgmt, likely will need placement in Memory Care Unit (4) Hypokalemia Code(s): E87.6 - HYPOKALEMIA Status: Acute Plan: Resolved (5) Weakness generalized Code(s): R53.1 - WEAKNESS Status: Acute Plan: PT evaluation for functional assessment (6) MAGAZINE REPAIRER (ventriculoperitoneal) shunt status Status: Chronic - Plan PT/OT, rn social services, speech therapy, DVT proph w/SCDs Stable currently Continue routine supportive mgmt Continue ASA/Lipitor PT/OT for functional assessment CM for SNF/placement options Resume home BP meds Start Folate 1mg po daily Continue isolation protocol give COVID-19 +
[2020-06-13] MEDS ORDERED: Sodium Chloride 0.9% 500 ML IVPB SCH (15:45)
[2020-06-13] MEDS ORDERED: Sodium Chloride 0.9% 500 ML IV SCH (16:30)
[2020-06-13] MEDS: Atorvastatin Calcium 40 MG TAB PO SCH (22:29)
[2020-06-14] MEDS: Aspirin 81 mg Enteric Coated Tablet PO SCH (09:17)
[2020-06-14] MEDS: Metoprolol Tartrate 25 MG TAB PO SCH ×2 (09:17→21:48)
[2020-06-14] MEDS: Folic Acid 1 MG TAB PO SCH (09:23)
[2020-06-14] MEDS: Cephalexin 250 MG CAP PO SCH ×2 (09:24→21:50)
--- NOTE | 2020-06-14 12:31 | PDOC.HOSPP ---
- Subjective Encounter Date: 06/14/20 Encounter Time: 12:00 Subjective: f/u for deconditioning/COVID-19 + but no O2 requirement. Remains confused with baseline dementia needing maximal support and daily care. - Objective Vital Signs & Weight: Vital Signs (12 hours) Temp Pulse Resp BP BP Pulse Ox 06/14/20 11:46 97.4 F L 87 17 98/63 93 L 06/14/20 09:24 92 16 118/76 06/14/20 04:00 99.6 F 93 16 117/62 98 Weight Admit Weight 181 lb 1.6 oz Weight 181 lb 1.6 oz I&O: 06/13/20 06/14/20 06/15/20 06:59 06:59 06:59 Intake Total 480 Balance 480 Result Diagrams: 06/12/20 05:00 06/12/20 05:00 Additional Labs: Laboratory Tests 09/09/18 06/11/20 06/11/20 09:45 10:44 10:44 Potassium 3.3 L Lactic Acid Magnesium B-Natriuretic Peptide 139.1 H 316.0 H Vitamin B12 Folate TSH 3rd Generation Prolactin 06/11/20 06/11/20 06/11/20 10:44 11:29 11:29 Potassium Lactic Acid 1.6 Magnesium 1.9 B-Natriuretic Peptide Vitamin B12 Folate TSH 3rd Generation Prolactin 33.36 H 06/11/20 06/11/20 11:29 13:14 Potassium Lactic Acid Magnesium B-Natriuretic Peptide Vitamin B12 239 Folate 5.80 L TSH 3rd Generation 3.1877 Prolactin Hospitalist ROS - Medication Medications: Active Medications Generic Name Dose Route Start Last Admin Trade Name Jose PRN Reason Stop Dose Admin Acetaminophen 650 mg 06/11/20 12:52 06/12/20 22:25 Acetaminophen 325 Mg Tab PO 650 mg Q4H PRN Administration Headache/Fever/Mild Pain (1-3) Aspirin 81 mg 06/13/20 09:00 06/14/20 09:17 Aspirin 81 Mg Enteric Coated Tablet PO 81 mg DAILY AMERICA Administration Atorvastatin Calcium 40 mg 06/12/20 21:00 06/13/20 22:29 Atorvastatin Calcium 40 Mg Tab PO 40 mg HS AMERICA Administration Cephalexin 500 mg 06/12/20 21:00 06/14/20 09:24 Cephalexin 250 Mg Cap PO 500 mg BID AMERICA Administration Folic Acid 1 mg 06/13/20 09:00 06/14/20 09:23 Folic Acid 1 Mg Tab PO 1 mg DAILY AMERICA Administration Isosorbide Mononitrate 60 mg 06/13/20 09:00 06/14/20 09:23 Isosorbide Mononitrate Er 60 Mg Tab PO 60 mg DAILY AMERICA Administration Metoprolol Tartrate 12.5 mg 06/12/20 21:00 06/14/20 09:17 Metoprolol Tartrate 25 Mg Tab PO 12.5 mg BID AMERICA Administration Sodium Chloride 10 ml 06/11/20 12:47 06/14/20 09:17 Flush - Normal Saline 10 Ml Syringe IVF 10 ml PRN PRN Administration Saline Flush - Exam General - other findings: awake to name briefly Eye: PERRL, anicteric sclera ENT: normocephalic atraumatic, no oropharyngeal lesions Neck: supple, symmetric, no JVD, no thyromegaly, no lymphadenopathy Heart: RRR, no gallops, no rubs, normal peripheral pulses Heart - other findings: S1, S2 Respiratory: no tachypnea Respiratory - other findings: diminished in bases bilat, scattered coarse sounds Gastrointestinal: soft, non-tender, non-distended, normal bowel sounds, no palpable masses Extremities: no cyanosis, no clubbing, no edema Skin: normal turgor, no lesions Neurological: cranial nerve grossly intact, no new deficit Musculoskeletal: generalized weakness Psychiatric: oriented to person, flat affect, somnolent, lethargic Hosp A/P (1) TIA (transient ischemic attack) Code(s): G45.9 - TRANSIENT CEREBRAL ISCHEMIC ATTACK, UNSPECIFIED Status: Acute Plan: Suspected, continue routine supportive mgmt (2) COVID-19 Code(s): U07.1 - COVID-19 Status: Acute Plan: No current O2 requirement, supportive mgmt (3) Dementia Code(s): F03.90 - UNSPECIFIED DEMENTIA WITHOUT BEHAVIORAL DISTURBANCE Status: Chronic Qualifiers: Dementia type: Alzheimer's Plan: Supportive mgmt, coordinate for memory care unit (4) Hypokalemia Code(s): E87.6 - HYPOKALEMIA Status: Acute (5) Weakness generalized Code(s): R53.1 - WEAKNESS Status: Acute (6) 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
[2020-06-14] MEDS: Sodium Chloride 0.9% 1,000 ML IV SCH (17:53)
[2020-06-14] MEDS: Atorvastatin Calcium 40 MG TAB PO SCH (21:48)
[2020-06-15] MEDS: Sodium Chloride 0.9% 1,000 ML IV SCH ×3 (03:10→23:30)
[2020-06-15] MEDS: Folic Acid 1 MG TAB PO SCH (07:42)
[2020-06-15] MEDS: Cephalexin 250 MG CAP PO SCH ×2 (07:43→20:53)
[2020-06-15] MEDS: Aspirin 81 mg Enteric Coated Tablet PO SCH (07:43)
[2020-06-15] MEDS: Metoprolol Tartrate 25 MG TAB PO SCH ×2 (07:43→20:52)
--- NOTE | 2020-06-15 13:42 | CT ---
CT ANGIOGRAM NECK WITH CONTRAST CT ANGIOGRAM BRAIN WITH CONTRAST: DATE: 06/11/2020 10:44 AM HISTORY: 85-year-old male with acute stroke symptoms: Altered mental status and facial droop. At 11:11 AM 06/11/2020 Dr. Mckenzie gave verbal report to Dr. Bayron Nash of the ER TECHNIQUE: After IV contrast injection, arterial bolus chasing technique scan performed from pulmonic trunk to v ertex of head. Coronal and sagittal 3-D MIP reconstructions. FINDINGS: Bilateral MCAs: Bilateral M1 segments are patent, with no thrombus, occlusion, or high-grade stenosis . Proximal portions of bilateral M2 segments are patent. Bilateral carotid siphons: Bilaterally patent with no high-grade stenosis. Bilateral intracranial vertebral: Patent Basilar: Patent with no high-grade stenosis. Bilateral CHRISTMAS TREE GRADER: Bilateral P1 and P2 segments are patent Bilateral superior cerebellar: Proximal portions patent Right internal carotid: Mild calcified plaque at origin. No stenosis. Left internal carotid: Mild calcified plaque at origin. No stenosis. Right common carotid: Soft plaque at distal most RCCA just proximal to bifurcation, causing mild sten osis. No high-grade stenosis . Left common carotid: Calcified plaque at origin without significant stenosis. 1 cm distal to origin, soft plaque causes mild, approximately 20-50% stenosis. Distally, just proximal to bifurcation, calcified mild plaque causes mild stenosis. Brachiocephalic: Mild calcified plaque. No high-grade stenosis. Right subclavian: No stenosis. Left subclavian: Mild scattered plaque throughout. No stenosis. Right vertebral: Mild stenosis at origin. No high-grade stenosis. Left vertebral: Heavily calcified plaque at tortuous origin causing severe stenosis.: IMPRESSION: 1) no thrombosis, high-grade stenosis, or occlusion, of M1 segments of middle cerebral arteries. 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 3) scattered atherosclerotic plaque. Transcribed Date/Time: 06/15/2020 1:42 PM
--- NOTE | 2020-06-15 14:32 | PDOC.HOSPP ---
- Subjective Encounter Date: 06/15/20 Encounter Time: 14:20 Subjective: f/u for COVID +/no hypoxia, deconditioning/dementia. Poor po intake per FISH SMOKER. Awaiting SNF options. - Objective Vital Signs & Weight: Vital Signs (12 hours) Temp Pulse Resp BP BP Pulse Ox 06/15/20 11:51 98.8 F 79 20 115/89 93 L 06/15/20 04:15 98.8 F 85 16 145/95 H 92 L Weight Admit Weight 181 lb 1.6 oz Weight 181 lb 1.6 oz Result Diagrams: 06/12/20 05:00 06/12/20 05:00 Additional Labs: Accuchecks 06/15/20 05:27 POC Glucose 130 H Laboratory Tests 09/09/18 06/11/20 06/11/20 09:45 10:44 10:44 Potassium 3.3 L Lactic Acid Magnesium B-Natriuretic Peptide 139.1 H 316.0 H Vitamin B12 Folate TSH 3rd Generation Prolactin 06/11/20 06/11/20 06/11/20 10:44 11:29 11:29 Potassium Lactic Acid 1.6 Magnesium 1.9 B-Natriuretic Peptide Vitamin B12 Folate TSH 3rd Generation Prolactin 33.36 H 06/11/20 06/11/20 11:29 13:14 Potassium Lactic Acid Magnesium B-Natriuretic Peptide Vitamin B12 239 Folate 5.80 L TSH 3rd Generation 3.1877 Prolactin Hospitalist ROS - Medication Medications: Active Medications Generic Name Dose Route Start Last Admin Trade Name Freq PRN Reason Stop Dose Admin Acetaminophen 650 mg 06/11/20 12:52 06/12/20 22:25 Acetaminophen 325 Mg Tab PO 650 mg Q4H PRN Administration Headache/Fever/Mild Pain (1-3) Aspirin 81 mg 06/13/20 09:00 06/15/20 07:43 Aspirin 81 Mg Enteric Coated Tablet PO 81 mg DAILY AMERICA Administration Atorvastatin Calcium 40 mg 06/12/20 21:00 06/14/20 21:48 Atorvastatin Calcium 40 Mg Tab PO 40 mg HS AMERICA Administration Cephalexin 500 mg 06/12/20 21:00 06/15/20 07:43 Cephalexin 250 Mg Cap PO 500 mg BID AMERICA Administration Folic Acid 1 mg 06/13/20 09:00 06/15/20 07:42 Folic Acid 1 Mg Tab PO 1 mg DAILY AMERICA Administration Sodium Chloride 1,000 mls @ 100 mls/hr 06/14/20 17:30 06/15/20 07:43 Normal Saline 0.9% IV 1,000 mls .Q10H AMERICA Administration Isosorbide Mononitrate 60 mg 06/13/20 09:00 06/15/20 07:43 Isosorbide Mononitrate Er 60 Mg Tab PO 60 mg DAILY AMERICA Administration Metoprolol Tartrate 12.5 mg 06/12/20 21:00 06/15/20 07:43 Metoprolol Tartrate 25 Mg Tab PO 12.5 mg BID AMERICA Administration Sodium Chloride 10 ml 06/11/20 12:47 06/14/20 09:17 Flush - Normal Saline 10 Ml Syringe IVF 10 ml PRN PRN Administration Saline Flush - Exam General Appearance: ill appearing General - other findings: somnolent, minimal verbal response to questions Eye: PERRL, anicteric sclera ENT: normocephalic atraumatic, no oropharyngeal lesions Neck: supple, symmetric, no JVD, no thyromegaly, no lymphadenopathy Heart: RRR, no gallops, no rubs, normal peripheral pulses Heart - other findings: S1, S2 Respiratory: no tachypnea Respiratory - other findings: scattered coarse sounds, diminished in bases Gastrointestinal: soft, non-tender, non-distended, normal bowel sounds, no palpable masses Extremities: no cyanosis, no clubbing, no edema Skin: normal turgor Neurological: cranial nerve grossly intact, no new deficit Musculoskeletal: generalized weakness, diffuse muscle atrophy Psychiatric: oriented to person, oriented to place, somnolent, lethargic Hosp A/P (1) TIA (transient ischemic attack) Code(s): G45.9 - TRANSIENT CEREBRAL ISCHEMIC ATTACK, UNSPECIFIED Status: Acute Plan: ? 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 (7) Dysphagia Code(s): R13.10 - DYSPHAGIA, UNSPECIFIED Status: Chronic Qualifiers: Dysphagia type: oropharyngeal phase Qualified Code(s): R13.12 - Dysphagia, oropharyngeal phase Plan: FISH SMOKER consult, modified diet texture, discuss with family regarding aspiration risks - Plan continue antibiotics, PT/OT, mental health social worker, speech therapy, DVT proph w/SCDs Consults: Palliative Care Stable currently Continue routine supportive mgmt Continue ASA/Lipitor PT/OT for functional assessment CM for SNF/placement options Resume home BP meds Start Folate 1mg po daily Continue isolation protocol given COVID-19 +
[2020-06-15] MEDS: Acetaminophen 325 MG TAB PO PRN (16:40)
[2020-06-15] MEDS: Atorvastatin Calcium 40 MG TAB PO SCH (20:53)
[2020-06-16] MEDS: Sodium Chloride 0.9% 1,000 ML IV SCH ×2 (03:52→16:50)
[2020-06-16] MEDS: Cephalexin 250 MG CAP PO SCH ×2 (09:13→20:31)
[2020-06-16] MEDS: Folic Acid 1 MG TAB PO SCH (09:13)
[2020-06-16] MEDS: Aspirin 81 mg Enteric Coated Tablet PO SCH (09:13)
[2020-06-16] MEDS: Metoprolol Tartrate 25 MG TAB PO SCH ×2 (09:14→20:31)
[2020-06-16 14:17] VITALS: BMI 24.6
[2020-06-16] MEDS: Acetaminophen 325 MG TAB PO PRN (16:50)
--- NOTE | 2020-06-16 17:12 | PDOC.HOSPP ---
- Subjective Encounter Date: 06/16/20 Encounter Time: 11:20 Subjective: f/u for COVID +/no hypoxia/dysphagia/dementia/deconditioning. Poor po intake continues. Family wishing to pursue hospice options. - Objective Vital Signs & Weight: Vital Signs (12 hours) Temp Pulse Resp BP BP Pulse Ox 06/16/20 16:00 100.7 F H 104 H 24 H 127/97 H 92 L 06/16/20 12:00 98.9 F 97 24 H 131/89 96 06/16/20 08:20 99.5 F 88 28 H 151/93 H 93 L Weight Admit Weight 181 lb 1.6 oz Weight 181 lb 11.2 oz I&O: 06/15/20 06/16/20 06/17/20 06:59 06:59 06:59 Intake Total 900 Balance 900 Result Diagrams: 06/12/20 05:00 06/12/20 05:00 Additional Labs: Laboratory Tests 09/09/18 06/11/20 06/11/20 09:45 10:44 10:44 Potassium 3.3 L Lactic Acid Magnesium B-Natriuretic Peptide 139.1 H 316.0 H Vitamin B12 Folate TSH 3rd Generation Prolactin 06/11/20 06/11/20 06/11/20 10:44 11:29 11:29 Potassium Lactic Acid 1.6 Magnesium 1.9 B-Natriuretic Peptide Vitamin B12 Folate TSH 3rd Generation Prolactin 33.36 H 06/11/20 06/11/20 11:29 13:14 Potassium Lactic Acid Magnesium B-Natriuretic Peptide Vitamin B12 239 Folate 5.80 L TSH 3rd Generation 3.1877 Prolactin Hospitalist ROS - Medication Medications: Active Medications Generic Name Dose Route Start Last Admin Trade Name Freq PRN Reason Stop Dose Admin Acetaminophen 650 mg 06/11/20 12:52 06/16/20 16:50 Acetaminophen 325 Mg Tab PO 650 mg Q4H PRN Administration Headache/Fever/Mild Pain (1-3) Aspirin 81 mg 06/13/20 09:00 06/16/20 09:13 Aspirin 81 Mg Enteric Coated Tablet PO 81 mg DAILY AMERICA Administration Atorvastatin Calcium 40 mg 06/12/20 21:00 06/15/20 20:53 Atorvastatin Calcium 40 Mg Tab PO 40 mg HS AMERICA Administration Cephalexin 500 mg 06/12/20 21:00 06/16/20 09:13 Cephalexin 250 Mg Cap PO 500 mg BID AMERICA Administration Folic Acid 1 mg 06/13/20 09:00 06/16/20 09:13 Folic Acid 1 Mg Tab PO 1 mg DAILY AMERICA Administration Sodium Chloride 1,000 mls @ 100 mls/hr 06/14/20 17:30 06/16/20 16:50 Normal Saline 0.9% IV 1,000 mls .Q10H AMERICA Administration Isosorbide Mononitrate 60 mg 06/13/20 09:00 06/16/20 09:14 Isosorbide Mononitrate Er 60 Mg Tab PO 60 mg DAILY AMERICA Administration Labetalol HCl 20 mg 06/11/20 12:47 06/15/20 16:40 Labetalol Hcl 100 Mg/20 Ml Vial SLOW IVP 4 ml Q1H PRN Administration BP > 220/110 Metoprolol Tartrate 12.5 mg 06/12/20 21:00 06/16/20 09:14 Metoprolol Tartrate 25 Mg Tab PO 12.5 mg BID AMERICA Administration Sodium Chloride 10 ml 06/11/20 12:47 06/14/20 09:17 Flush - Normal Saline 10 Ml Syringe IVF 10 ml PRN PRN Administration Saline Flush - Exam General Appearance: NAD, ill appearing General - other findings: somnolent, opens eyes to name briefly Eye: anicteric sclera ENT: normocephalic atraumatic, no oropharyngeal lesions Neck: supple, symmetric, no JVD, no thyromegaly, no lymphadenopathy Heart: RRR, no gallops, no rubs, normal peripheral pulses Heart - other findings: S1, S2 Respiratory: no wheezes, tachypneic Respiratory - other findings: coarse sounds bilat, diminished in bases Gastrointestinal: soft, non-tender, non-distended, normal bowel sounds, no palpable masses Extremities: no cyanosis, no clubbing, no edema Skin: normal turgor Neurological: no new deficit Musculoskeletal: generalized weakness Psychiatric: oriented to person, somnolent, lethargic Hosp A/P (1) TIA (transient ischemic attack) Code(s): G45.9 - TRANSIENT CEREBRAL ISCHEMIC ATTACK, UNSPECIFIED Status: Acute Plan: Suspected, continue supportive mgmt (2) COVID-19 Code(s): U07.1 - COVID-19 Status: Acute Plan: No associated hypoxia, supportive mgmt (3) Dementia Code(s): F03.90 - UNSPECIFIED DEMENTIA WITHOUT BEHAVIORAL DISTURBANCE Status: Chronic Qualifiers: Dementia type: Alzheimer's Plan: Appears advanced, likely end-stage process (4) Hypokalemia Code(s): E87.6 - HYPOKALEMIA Status: Acute (5) Weakness generalized Code(s): R53.1 - WEAKNESS Status: Acute (6) 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 (7) Dysphagia Code(s): R13.10 - DYSPHAGIA, UNSPECIFIED Status: Chronic Qualifiers: Dysphagia type: oropharyngeal phase Qualified Code(s): R13.12 - Dysphagia, oropharyngeal phase Plan: Poor po intake, no PEG or artificial feeds per family, pleasure feeds with risk ok - Plan plan discussed w/ family, PT/OT, delinquency prevention social worker, speech therapy, respiratory therapy Consults: Hospice, Palliative Care Stable currently Continue routine supportive mgmt Continue ASA/Lipitor PT/OT for functional assessment Family wishing to pursue hospice care at home Code Status: DNAR Continue Folate 1mg po daily Continue isolation protocol given COVID-19 + Likely d/c home with hospice in 24h
[2020-06-16] MEDS: Atorvastatin Calcium 40 MG TAB PO SCH (20:31)
[2020-06-17] MEDS: Sodium Chloride 0.9% 1,000 ML IV SCH ×2 (05:30→15:55)
[2020-06-17] MEDS: Cephalexin 250 MG CAP PO SCH (10:36)
[2020-06-17] MEDS: Aspirin 81 mg Enteric Coated Tablet PO SCH (10:39)
[2020-06-17] MEDS: Metoprolol Tartrate 25 MG TAB PO SCH (10:39)
[2020-06-17] MEDS: Folic Acid 1 MG TAB PO SCH (10:39)
--- NOTE | 2020-06-17 13:17 | DIS ---
DATE OF ADMISSION: 06/11/2020 DATE OF DISCHARGE: 06/17/2020 DISCHARGE DIAGNOSES: 1. COVID-19 positive. 2. Question of transient ischemic attack. 3. Advanced dementia, Alzheimer's type. 4. Hypokalemia. 5. Generalized weakness. 6. Dysphagia. 7. Prostate carcinoma. CONSULTATIONS: Dr. West with Neurology Service. PERTINENT LABORATORY AND X-RAY FINDINGS: Troponin I ranged between 0.176 to 0.255. Total cholesterol 143, triglycerides 80, HDL 56, and LDL 71. Vitamin B12 level 239. Folate level 5.80. TSH 3.19. Prolactin level 33.4. Urine drug screen dated 06/11/2020, negative. CT of the brain without contrast dated 06/11/2020, showed no acute intracranial process. CT angiogram of the head and neck dated 06/11/2020 showed no thrombosis, high-grade stenosis, or occlusion. Severe stenosis noted at the origin of the left vertebral artery. Portable chest x-ray dated 06/11/2020, showed small infiltrate of the left lower lobe. HOSPITAL COURSE: The patient was initially admitted after presenting with potential stroke after the patient was noted with a left facial droop and slurred speech. The patient underwent general stroke protocol including CT imaging of the brain showing no acute intracranial process. The patient underwent evaluation by the Neurology Service with recommendations for general supportive management and aspirin therapy. The patient was noted with severe stenosis at the origin of the left vertebral artery; however, no specific intervention was recommended due to the anatomy and location of the stenosis. The patient continued to clinically decline during the hospital course, unable to tolerate regular oral intake without evidence of aspiration. Due to the patient's comorbid status and advanced dementia, discussions were had with the family regarding palliative care and comfort measures. The family decided to pursue comfort care and to have the patient return home with hospice services at discharge. The patient overall continued to clinically decline, needing maximal assistance with activities of daily living and general hygiene and care. The patient was transitioned to do not attempt resuscitation status and will continue on hospice services after discharge. I have examined the patient at the time of discharge with coordination of followup confirmed with family members. DISCHARGE MEDICATIONS: Reviewed and negative. FOLLOWUP: The patient followup with Hospice with [facility] at home, 06/17/2020. CONDITION ON DISCHARGE: Guarded. ACTIVITY: Ad-mauricio. DIET: Regular as tolerated. Diet with risk and pleasure feeds noted. CODE STATUS: Do not attempt resuscitation. DISPOSITION: Home with [facility], 06/17/2020. TIME SPENT: Total time preparing and coordinating discharge, 33 minutes. Job ID: [id number]
--- NOTE | 2020-06-17 15:26 | PDOC.FMACP ---
Advance Care Planning - Problem (1) Palliative care encounter Status: Acute Code(s): Z51.5 - ENCOUNTER FOR PALLIATIVE CARE (2) Hypokalemia Status: Acute Code(s): E87.6 - HYPOKALEMIA (3) Pneumonia due to COVID-19 virus Status: Acute Code(s): U07.1 - COVID-19; J12.82 - PNEUMONIA DUE TO CORONAVIRUS DISEASE 2019 (4) TIA (transient ischemic attack) Status: Acute Code(s): G45.9 - TRANSIENT CEREBRAL ISCHEMIC ATTACK, UNSPECIFIED (5) Dementia Status: Chronic Code(s): F03.90 - UNSPECIFIED DEMENTIA WITHOUT BEHAVIORAL DISTURBANCE Qualifiers: Dementia type: Alzheimer's (6) Dysphagia Status: Chronic Code(s): R13.10 - DYSPHAGIA, UNSPECIFIED Qualifiers: Dysphagia type: oropharyngeal phase Qualified Code(s): R13.12 - Dysphagia, oropharyngeal phase - Note Participants: family, palliative care Summary: Palliative care has discussed Advanced Care Planning with family. The diagnosis, prognosis and goals of care were discussed. Appropriate forms and documentation to accomplish the goals of care were discussed. All questions were answered. Goal of Care: Transition to Hospice / Elected HBV CM aware and facilitated transfer Confirmed DNAR Kandace Rojas completed OOHDNAR, gave to S Hans and is now on chart. Please also refer to Palliative Care notes in note section. Palliative care will sign off as Goal of Care addressed, and Directives complete. Thank you for this very appropriate consult. Time Spent (mins): 20
[2020-06-17 15:57] VITALS: TEMP 101.1
[2020-06-17 16:42] VITALS: BP 120/59
--- NOTE | 2020-06-18 14:26 | EKG ---
Test Reason : Blood Pressure : / mmHG Vent. 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
--- NOTE | 2020-06-21 13:06 | PQF ---
CLINICAL DOCUMENTATION CLARIFICATION FORM: Dear : JAQUELINE MORTON DO Date / Time: 06/21/2020 Please exercise your independent, professional judgment in responding to the clarification form. Clinical indicators are provided on the bottom of this form for your review Please check appropriate box(es): [ ] TIA due to stenosis of the left vertebral artery [ x ] TIA not due to stenosis of the left vertebral artery [ ] Other diagnosis (Please specify if any) [ ] Unable to determine Physician Signature: Date/Time: For continuity of documentation, please document condition throughout progress notes and discharge summary. Thank You. 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
== END 2020-06-17 17:08 | disposition hospice, home (50) | DRG 69 ==
LOC: ERS 10:29 → 2SE 12:16
PROVIDERS: ADMIT Internal Medicine; ATTEND Family Medicine
PROC: 8E0ZXY6 Isolation (ICD-10-PCS; principal; 2020-06-11)
DX: G45.9 Transient cerebral ischemic attack, unspecified (principal); U07.1 COVID-19; J12.82 Pneumonia due to coronavirus disease 2019; R29.810 Facial weakness; R77.8 Other specified abnormalities of plasma proteins; E87.6 Hypokalemia; R29.714 NIHSS score 14; Z51.5 Encounter for palliative care; Z66 Do not resuscitate; R47.81 Slurred speech; E78.5 Hyperlipidemia, unspecified; I10 Essential (primary) hypertension; I25.10 Atherosclerotic heart disease of native coronary artery without angina pectoris; Z96.653 Presence of artificial knee joint, bilateral; R13.12 Dysphagia, oropharyngeal phase; C61 Malignant neoplasm of prostate; G30.9 Alzheimer's disease, unspecified; F02.80 Dementia in other diseases classified elsewhere, unspecified severity, without behavioral disturbance, psychotic disturbance, mood disturbance, and anxiety; I65.02 Occlusion and stenosis of left vertebral artery; I25.2 Old myocardial infarction; Z86.73 Personal history of transient ischemic attack (TIA), and cerebral infarction without residual deficits; Z95.1 Presence of aortocoronary bypass graft; Z90.79 Acquired absence of other genital organ(s); Z79.82 Long term (current) use of aspirin; Z79.899 Other long term (current) drug therapy
CPT/HCPCS: 36415; 36416; 51701; 70450; 70496; 70498; 71045; 80048; 80053; 80061; 80306; 80307; 81003; 82550; 82553; 82607; 82746; 83605; 83735; 83880; 84146; 84443; 84484; 85025; 85610; 85730; 93005; 94760; 96365; 96368; 96375; J0456; J0696; J1100; J7030; Q9967